=== PATIENT | female | born 1975 | race Caucasian/White ===

== ENCOUNTER 2023-01-04 16:58 | Emergency (ER) | payer OTHER, SELFPAY ==
[2023-01-04 17:06] VITALS: BP 125/80; PULSE 81; RESP 16; TEMP 37.1; O2SAT 97; BMI 33.1
--- NOTE | 2023-01-04 17:06 | ED_ITS ---
Documented by User: Mervat Escobar MD 01/04/23 19:15 HPI - General Adult General Chief complaint: Back Pain/Injury Stated complaint: LEG/BACK D/T FALL Time Seen by Provider: 01/04/23 17:06 Related Data Previous Rx's Medication Instructions Recorded hydrocodone 5 mg-acetaminophen 325 1 tab PO Q6H PRN pain #12 tabs 01/04/23 mg tablet ketorolac 10 mg tablet 10 mg PO TID PRN pain #10 tabs 01/04/23 methocarbamol 750 mg tablet 750 mg PO TID PRN pain #20 tabs 01/04/23 Allergies Allergy/AdvReac Type Severity Reaction Status Date / Time Penicillins AdvReac Severe Verified 01/04/23 17:06 mold AdvReac Severe Uncoded 01/04/23 17:13 PFSH [facility] Social History Smoking status: Former smoker Exam Constitutional Vital Signs, click to edit/add: Last Vital Signs Temp 98.8 F 01/04/23 17:06 Pulse 81 01/04/23 17:06 Resp 16 01/04/23 17:06 BP 125/80 01/04/23 17:06 Pulse Ox 97 01/04/23 17:06 O2 Del Method Room Air 01/04/23 17:06 Course Vital Signs Vital signs: Vital Signs Temperature 98.8 F 01/04/23 17:06 Pulse Rate 81 01/04/23 17:06 Respiratory Rate 16 01/04/23 17:06 Blood Pressure 125/80 01/04/23 17:06 Pulse Oximetry 97 01/04/23 17:06 Oxygen Delivery Method Room Air 01/04/23 17:06 Temperature 98.8 F 01/04/23 17:06 Pulse Rate 81 01/04/23 17:06 Respiratory Rate 16 01/04/23 17:06 Blood Pressure 125/80 01/04/23 17:06 Pulse Oximetry 97 01/04/23 17:06 Oxygen Delivery Method Room Air 01/04/23 17:06 Medical Decision Making MDM Narrative Medical decision making narrative: CT of the lumbar spine, x-rays of the pelvis and x-rays of the right femur are unremarkable. Patient's exam is consistent with right-sided sciatica. She will be discharged home with a short course of analgesics, muscle relaxants and NSAIDs. Follow-up with PCP. Continue ice to areas of injury and return to the emergency department if symptoms change or worsen. Attending physician attestation I have reviewed the mid-level documentation, agree with the documentation, medical decision making and treatment plan as outlined by the mid-level provider. Discharge Plan Discharge Chief Complaint: Back Pain/Injury Clinical Impression: Low back pain, Sciatica Patient Disposition: Home, Self-Care Time of Disposition Decision: 18:43 Condition: Good Prescriptions / Home Meds: New hydrocodone-acetaminophen 5-325 mg tablet 1 tab PO Q6H PRN (Reason: pain) Qty: 12 0RF Rx Instructions: DX: M54.5 ketorolac 10 mg tablet 10 mg PO TID PRN (Reason: pain) Qty: 10 0RF methocarbamol 750 mg tablet 750 mg PO TID PRN (Reason: pain) Qty: 20 0RF Instructions: Sciatica (ED), Acute Low Back Pain (ED) Stand Alone Forms: Portal Instructions Referrals: Luigi Osei DO [Primary Care Provider] - 1 week Discharge Date/Time: 01/04/23 18:57 Documented by User: NACHO Sanchez 01/04/23 18:45 HPI - General Adult General Chief complaint: Back Pain/Injury Stated complaint: LEG/BACK D/T FALL Time Seen by Provider: 01/04/23 17:06 History of Present Illness HPI narrative: patient is a 47-year-old female who presents to the emergency department with complaint of pain in the low back radiating into the right hip and buttock and down the back of the right leg. She states two nights ago she slipped on dog urine and her home did the splits . She states her right leg went forward. Since the injury she has been having pain radiate from the right low back into the back of the right leg. She reports tingling to the toes of the right foot. She reports worsening pain with movement and sitting. She has not had any urinary symptoms or incontinence. She does not take any blood thinners. She denies any head injury, neck or upper back pain. Related Data Previous Rx's Medication Instructions Recorded hydrocodone 5 mg-acetaminophen 325 1 tab PO Q6H PRN pain #12 tabs 01/04/23 mg tablet ketorolac 10 mg tablet 10 mg PO TID PRN pain #10 tabs 01/04/23 methocarbamol 750 mg tablet 750 mg PO TID PRN pain #20 tabs 01/04/23 Allergies Allergy/AdvReac Type Severity Reaction Status Date / Time Penicillins AdvReac Severe Verified 01/04/23 17:06 mold AdvReac Severe Uncoded 01/04/23 17:13 Review of Systems ROS Constitutional Denies: fever or chills Ears, nose, mouth, and throat Denies: throat pain Cardiovascular Denies: chest pain Respiratory Denies: shortness of breath or cough Gastrointestinal Denies: abdominal pain, nausea or vomiting Musculoskeletal Reports: back pain and extremity pain; Denies: neck pain Integumentary/Breast Denies: rash Neurological Denies: headache Hematologic/Lymphatic Denies: easy bruising PFSH [facility] Social History Smoking status: Former smoker Exam Narrative Exam Narrative: Gen.: Awake, alert, in no distress Head: Normocephalic, atraumatic ENT: Moist mucous membranes Respiratory: No respiratory distress Extremities: diffuse tenderness of the lumbar spine with no bony point tend erness to palpation, diffuse tenderness of the right posterior hip and buttock as well as the right posterior thigh. Small area of ecchymosis noted to the right knee with no bony point tenderness or edema. No bony tenderness of the right ankle. Normal flexion and extension at the right ankle with normal dorsiflexion and plantarflexion. No decrease in sensation to the medial thighs Psych: Normal mood and affect Neuro: No focal neuro deficit Skin: Warm, dry, intact Constitutional Vital Signs, click to edit/add: Last Vital Signs Temp 98.8 F 01/04/23 17:06 Pulse 81 01/04/23 17:06 Resp 16 01/04/23 17:06 BP 125/80 01/04/23 17:06 Pulse Ox 97 01/04/23 17:06 O2 Del Method Room Air 01/04/23 17:06 Course Vital Signs Vital signs: Vital Signs Temperature 98.8 F 01/04/23 17:06 Pulse Rate 81 01/04/23 17:06 Respiratory Rate 16 01/04/23 17:06 Blood Pressure 125/80 01/04/23 17:06 Pulse Oximetry 97 01/04/23 17:06 Oxygen Delivery Method Room Air 01/04/23 17:06 Temperature 98.8 F 01/04/23 17:06 Pulse Rate 81 01/04/23 17:06 Respiratory Rate 16 01/04/23 17:06 Blood Pressure 125/80 01/04/23 17:06 Pulse Oximetry 97 01/04/23 17:06 Oxygen Delivery Method Room Air 01/04/23 17:06 Medical Decision Making MDM Narrative Medical decision making narrative: CT of the lumbar spine, x-rays of the pelvis and x-rays of the right femur are unremarkable. Patient's exam is consistent with right-sided sciatica. She will be discharged home with a short course of analgesics, muscle relaxants and NSAIDs. Follow-up with PCP. Continue ice to areas of injury and return to the emergency department if symptoms change or worsen. Medical Records Medical records reviewed: Yes I reviewed the patient's medical records Discharge Plan Discharge Chief Complaint: Back Pain/Injury Clinical Impression: Low back pain, Sciatica Patient Disposition: Home, Self-Care Time of Disposition Decision: 18:43 Condition: Good Prescriptions / Home Meds: New hydrocodone-acetaminophen 5-325 mg tablet 1 tab PO Q6H PRN (Reason: pain) Qty: 12 0RF Rx Instructions: DX: M54.5 ketorolac 10 mg tablet 10 mg PO TID PRN (Reason: pain) Qty: 10 0RF methocarbamol 750 mg tablet 750 mg PO TID PRN (Reason: pain) Qty: 20 0RF Instructions: Sciatica (ED), Acute Low Back Pain (ED) Stand Alone Forms: Portal Instructions Referrals: Luigi Osei DO [Primary Care Provider] - 1 week Discharge Date/Time: 01/04/23 18:57
[2023-01-04] MEDS: KETOROLAC TROMETHAMINE 60 MG/2 ML VIAL IM (17:26)
[2023-01-04] MEDS: ORPHENADRINE 60 MG/ 2 ML VIAL IM (17:27)
--- NOTE | 2023-01-04 18:01 | CT_ITS ---
The [address] [address] Patient Name: AILEEN RODRIGUEZ MRN: [id number] date: 1975 Sex: F Assigned Patient Location: ED.MAIN Current Patient Location: ER Accession/Order Number: [id number] Exam Date: 01/04/2023 17:57 Report Date: 01/04/2023 18:39 At the request of: MARIAN BERMEO Procedure: CT lumbar spine wo con EXAM: CT lumbar spine wo con HISTORY: Fall COMPARISON: None. TECHNIQUE: Axial CT imaging is performed. Sagittal and coronal reformatted/reconstructed sequences were additionally performed. FINDINGS: IMPRESSION: Maintenance of the normal lumbar lordosis. Vertebral body heights are unremarkable. Degenerative anterolisthesis of the L4 vertebral body on L5 of approximately 3.7 mm secondary to severe bilateral facet arthrosis. Secondary to the anterolisthesis is uncovering of the dorsal aspect of the L4/L5 with disc with central canal and subarticular recess narrowing. Mild intervertebral disc space narrowing at L3-L4 with a very minimal retrolisthesis of the L3 vertebral body. The remainder of the facet joints and disc levels are unremarkable. No prevertebral soft tissue edema. The visualized sacroiliac joints are normal. No visualized soft tissue edema. No muscle hematoma, fatty infiltration or atrophy. Electronically authenticated by: CASIE AMAYA Date: 01/04/2023 18:39
--- NOTE | 2023-01-04 18:08 | XR_ITS ---
[address] [address] Patient Name: AILEEN RODRIGUEZ MRN: [id number] date: 1975 Sex: F Assigned Patient Location: ER Current Patient Location: ED.MAIN Accession/Order Number: [id number] Exam Date: 01/04/2023 18:00 Report Date: 01/04/2023 18:35 At the request of: MARIAN BERMEO Procedure: XR femur RT 2V EXAM: XR femur RT 2V HISTORY: Fall COMPARISON: None. TECHNIQUE: 4 views FINDINGS: No osseous lesion, fracture, dislocation or subluxation. Joint spaces are unremarkable. No visualized effusion. No visualized soft tissue edema. XR/XR femur RT 2V IMPRESSION: Normal x-rays Electronically authenticated by: CASIE AMAYA Date: 01/04/2023 18:35
--- NOTE | 2023-01-04 18:08 | XR_ITS ---
The [address] [address] Patient Name: AILEEN RODRIGUEZ MRN: [id number] date: 1975 Sex: F Assigned Patient Location: ER Current Patient Location: ED.MAIN Accession/Order Number: [id number] Exam Date: 01/04/2023 18:00 Report Date: 01/04/2023 18:34 At the request of: MARIAN BERMEO Procedure: XR pelvis 1-2V EXAM: XR pelvis 1-2V HISTORY: Fall COMPARISON: None. TECHNIQUE: AP pelvis FINDINGS: No fracture, dislocation, subluxation or osseous lesion. Joint spaces are unremarkable for patient's age. XR/XR pelvis 1-2V IMPRESSION: No visualized abnormality Electronically authenticated by: CASIE AMAYA Date: 01/04/2023 18:34
== END 2023-01-04 18:57 | disposition home or self-care (01) ==
PROVIDERS: Emergency Provider Emergency Medicine; PCP Family Medicine
DX: M54.41 Lumbago with sciatica, right side (principal); Z87.891 Personal history of nicotine dependence
CPT/HCPCS: 72131; 72170; 73552; 96372; 99285

== ENCOUNTER 2023-01-08 17:27 | Emergency (ER) | payer OTHER, SELFPAY ==
[2023-01-08 17:29] VITALS: BP 160/86; PULSE 75; RESP 18; TEMP 36.8; O2SAT 99; BMI 33.1
--- NOTE | 2023-01-08 17:46 | PC.NURSE ---
pt presents to ED because pt states that she slipped in dog pee on 01/01 and fell into the splits. pt states she came into this ER on 01/04 and had imagine done and was told that she probably had nerve damage and that there was something wrong with the discs in her spine. pt states she was sent home with norco, toradol, and a muscle relaxer. pt states that she has only taken one dose of the muscle relaxer and has been hesitant about taking the norco and toradol because she doesn't like taking new medications. pt states that she went to [facility] on sunday because she was concerned for a blood clot because the back of patients right thigh and knee were bruised. pt states they did not do an ultrasound but she was told she had a pulled hamstring and that is normal for there to be bruising. pt was sent home with any new medications at that time. pt states that this morning she woke up and right thigh was swollen and she is having cramping and more pain to righht leg.
--- NOTE | 2023-01-08 17:49 | US_ITS ---
The [address] [address] Patient Name: AILEEN RODRIGUEZ MRN: [id number] date: 1975 Sex: F Assigned Patient Location: ER Current Patient Location: ER Accession/Order Number: [id number] Exam Date: 01/08/2023 17:50 Report Date: 01/08/2023 18:27 At the request of: JOE MERCADO Procedure: US venous doppler LE RT EXAM: US venous doppler LE RT HISTORY: injury COMPARISON: None. TECHNIQUE: Standard right lower extremity Doppler interrogation performed. FINDINGS: No evidence of right lower extremity DVT. Mild soft tissue swelling. Normal waveforms detected US/US venous doppler LE RT IMPRESSION: No evidence of right lower extremity DVT. Electronically authenticated by: MARYELLEN VASQUEZ Date: 01/08/2023 18:27
--- NOTE | 2023-01-08 18:38 | ED_ITS ---
HPI - General Adult General Chief complaint: Fall Stated complaint: Fall Time Seen by Provider: 01/08/23 17:35 Source: patient Mode of arrival: walk-in Limitations: no limitations History of Present Illness HPI narrative: Patient is a 47-year-old female who is presenting to the Emergency Room with chief complaint of right leg ecchymosis, swelling. Patient had a injury last Sunday patient slipped on dog PEE. Patient was diagnosed with right lower back pain, sciatica, and patient was discharged with oral, Amasa, and Robaxin. Patient's pain wasn't improving, Patient was working near [facility] on Sunday, she went to [facility] a few days ago was seen and evaluated, and was told that she might have pulled her hamstring. Patient has taken today her Toradol and Robaxin. Sunday she noticed the ecchymosis to the right inner thigh. Patient noticed her slightly more swelling to the right inner thigh and around her right knee today, so she came back to the Emergency Room for evaluation again. 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 Patient's had no new fall, no new trauma, no new injury since last Sunday. . All systems are negative except as noted/marked. All systems reviewed and otherwise negative. . Nurses note and vital signs reviewed and patient is not hypoxic. General: The patient appears well and in no apparent distress. Patient is resting comfortably on cart. Patient is not toxic, lethargic, or listless Skin: Warm, dry, no pallor noted. There is no rash noted. No petechiae, purpura. Head: Normocephalic, atraumatic Eye: Normal conjunctiva, no drainage, EOMI. PERRL Ears, Nose, Mouth, and Throat: oral mucosa is moist. Nares patent. Mouth without vesicles. Cardiovascular: Regular Rate and Rhythm, no murmur, gallop, rub Respiratory: Patient is in no distress, no accessory muscle use, lungs are clear to auscultation, no wheezing, rales or rhonchi Back: non-tender, no CVA tenderness bilaterally to percussion. No CT LS midline pain GI: soft, no tenderness Musculoskeletal: Patient has full range of motion of all of the extremities, no motor, sensory, or focal neurological deficits. Patient has a large area from her right inner thigh to the right posterior thigh a superficial ecchymosis. Patient has no palpable hematomas. Patient still has Mild to moderate pain to the right lower paralumbar area from L3-L5, positive moderate tenderness to palpation to right piriformis muscle. Positive straight leg raising on the right, negative on left. Patient does have mild to moderate tendernesss to pal pation to right posterior thigh, no pain to right popliteal fossa or right calf. Patient has no pain to the entire left posterior leg. Neurological: A&O x3, normal speech Psychiatric: Cooperative Related Data Previous Rx's Medication Instructions Recorded hydrocodone 5 mg-acetaminophen 325 1 tab PO Q6H PRN pain #12 tabs 01/04/23 mg tablet ketorolac 10 mg tablet 10 mg PO TID PRN pain #10 tabs 01/04/23 methocarbamol 750 mg tablet 750 mg PO TID PRN pain #20 tabs 01/04/23 Allergies Allergy/AdvReac Type Severity Reaction Status Date / Time Penicillins AdvReac Severe Verified 01/04/23 17:06 mold AdvReac Severe Uncoded 01/04/23 17:13 [facility] Social History Smoking status: Former smoker Exam Constitutional Vital Signs, click to edit/add: Last Vital Signs Temp 98.3 F 01/08/23 17:29 Pulse 75 01/08/23 17:29 Resp 18 01/08/23 17:29 BP 160/86 H 01/08/23 17:29 Pulse Ox 99 01/08/23 17:29 Course Vital Signs Vital signs: Vital Signs Temperature 98.3 F 01/08/23 17:29 Pulse Rate 75 01/08/23 17:29 Respiratory Rate 18 01/08/23 17:29 Blood Pressure 160/86 H 01/08/23 17:29 Pulse Oximetry 99 01/08/23 17:29 Temperature 98.3 F 01/08/23 17:29 Pulse Rate 75 01/08/23 17:29 Respiratory Rate 18 01/08/23 17:29 Blood Pressure 160/86 H 01/08/23 17:29 Pulse Oximetry 99 01/08/23 17:29 Medical Decision Making MDM Narrative Medical decision making narrative: Patient's ultrasound to the right lower leg shows no deep vein thrombosis. This is a preliminary report. Patient continue using ice, stretching, call her PCP Dr. Gilman tomorrow follow-up with physical therapy and chiropractor if needed to help with sciatica. Patient understands this. No questions at discharge. Patient has no signs of saddle anesthesia or cauda equina. Patient has only taken a few of her tablets of prescriptions were given to her last Sunday to help with her pain. She was afraid to take her medication for unknown reasons. Discharge Plan Discharge Chief Complaint: Fall Clinical Impression: Low back pain, Superficial bruising of lower leg Patient Disposition: Home, Self-Care Condition: Good Prescriptions / Home Meds: No Action hydrocodone-acetaminophen 5-325 mg tablet 1 tab PO Q6H PRN (Reason: pain) Qty: 12 0RF Rx Instructions: DX: M54.5 ketorolac 10 mg tablet 10 mg PO TID PRN (Reason: pain) Qty: 10 0RF methocarbamol 750 mg tablet 750 mg PO TID PRN (Reason: pain) Qty: 20 0RF Instructions: Sciatica (ED), Contusion in Adults (ED), Lumbar Radiculopathy (ED), Back Pain (ED), Lower Back Exercises (ED) Additional Instructions: Continue to ice 20 minutes on, 20 minutes off, Do not use heat. Continue stretching. Follow-up with PCP and formal physical therapy as needed. Continue to elevate. Stand Alone Forms: Portal Instructions Referrals: Luigi Osei DO [Primary Care Provider] - 1 week Discharge Date/Time: 01/08/23 18:44
== END 2023-01-08 18:44 | disposition home or self-care (01) ==
PROVIDERS: Emergency Provider Emergency Medicine; PCP Family Medicine
DX: S80.11XA Contusion of right lower leg, initial encounter (principal); M54.50 Low back pain, unspecified; W01.0XXA Fall on same level from slipping, tripping and stumbling without subsequent striking against object, initial encounter; Z87.891 Personal history of nicotine dependence
CPT/HCPCS: 93971; 99284

== ENCOUNTER 2023-02-01 20:24 | Observation (INO) | payer OTHER, SELFPAY ==
[2023-02-01 20:27] VITALS: BP 120/84; PULSE 101; RESP 16; TEMP 38.1; O2SAT 98; BMI 34.0
[2023-02-01 20:32] VITALS: BP 120/84
--- NOTE | 2023-02-01 20:36 | ED.ABDPAIN1 ---
Documented by User: Billie Varma 02/01/23 22:09 HPI - Abdominal Pain General Chief Complaint: Abdominal Pain Stated Complaint: UTI Time Seen by Provider: 02/01/23 20:33 Source: patient Mode of arrival: walk-in History of Present Illness HPI narrative: 47 year old female presents to the ED for abd pain, nausea. Onset was within the past 1-2 days. Reports bloating, distention to her upper abdomen. She has pain to her right side. She presented febrile. Denies CP, SOB, diarrhea. Reports constipation. Denies dysuria, hematuria. Rates her pain 9/10 at this time. She has hx kidney stones. Reports previous abd hernia repair at the age of 13. She has hx DM. Related Data Previous Rx's Medication Instructions Recorded hydrocodone 5 mg-acetaminophen 325 1 tab PO Q6H PRN pain #12 tabs 01/04/23 mg tablet ketorolac 10 mg tablet 10 mg PO TID PRN pain #10 tabs 01/04/23 methocarbamol 750 mg tablet 750 mg PO TID PRN pain #20 tabs 01/04/23 Allergies Allergy/AdvReac Type Severity Reaction Status Date / Time Penicillins AdvReac Severe Verified 01/04/23 17:06 mold AdvReac Severe Uncoded 01/04/23 17:13 Review of Systems ROS Constitutional Reports: fever and chills; Denies: fatigue Ears, nose, mouth, and throat Denies: throat pain Cardiovascular Denies: chest pain Respiratory Denies: shortness of breath or cough Gastrointestinal Reports: abdominal pain, nausea and constipation; Denies: vomiting or diarrhea Genitourinary Denies: painful urination, urinary frequency, urinary urgency or blood in urine Musculoskeletal Reports: back pain Integumentary/Breast Denies: rash Neurological Denies: headache PFSH PFSH Social History Smoking status: Never smoker Exam Constitutional Vital Signs, click to edit/add: Last Vital Signs Temp 100.6 F H 02/01/23 20:27 Pulse 101 H 02/01/23 20:27 Resp 16 02/01/23 20:27 BP 120/84 02/01/23 20:27 Pulse Ox 98 02/01/23 20:27 O2 Del Method Room Air 02/01/23 20:27 Common normals: oriented x3 General appearance: cooperative; not comfortable Eye Common normals: conjunctivae normal and no scleral icterus Neck & C-Spine Common normals: supple Chest Chest: symmetrical chest wall rise Respiratory Common normals: normal respiratory effort Effort & inspection: able to speak in complete sentences and symmetric chest movement Cardio Rate: tachycardic Rhythm: regular rhythm GI Inspection: normal to inspection Auscultation: normoactive bowel sounds Palpation: soft and tender Details: epigastric, RLQ and RUQ; no guarding and not rigid Neuro Common normals: oriented x3 Sensorium/orientation: awake and alert Course Vital Signs Vital signs: Vital Signs Temperature 100.6 F H 02/01/23 20:27 Pulse Rate 101 H 02/01/23 20:27 Respiratory Rate 16 02/01/23 20:27 Blood Pressure 120/84 02/01/23 20:27 Pulse Oximetry 98 02/01/23 20:27 Oxygen Delivery Method Room Air 02/01/23 20:27 Temperature 100.6 F H 02/01/23 20:27 Pulse Rate 101 H 02/01/23 20:27 Respiratory Rate 16 02/01/23 20:27 Blood Pressure 120/84 02/01/23 20:27 Pulse Oximetry 98 02/01/23 20:27 Oxygen Delivery Method Room Air 02/01/23 20:27 MDM - Abdominal Pain MDM Narrative Medical decision making narrative: Testing was pending. Care was resumed to Dr. Owusu. See his dictation for further evaluation and treatment. Differential Diagnosis Differential diagnosis: Likely abdominal pain, acute appendicitis, constipation, diverticulitis, pancreatitis and small bowel obstruction Lab Data Labs: Lab Results 02/01/23 02/01/23 Range/Units 20:20 20:45 WBC 15.8 H (4.0-11.0) 10^3/uL RBC 4.68 (4.20-5.40) 10^6/uL Hgb 13.9 (12.0-16.0) g/dL Hct 42.5 (36.0-48.0) % MCV 90.8 (81.0-99.0) fL MCH 29.7 (26.7-34.0) pg MCHC 32.7 (29.9-35.2) g/dL RDW 13.7 (11.0-15.0) % Plt Count 223 (150-450) 10^3/uL MPV 11.3 (9.5-13.5) fL Neut % (Auto) 86.2 H (43.0-75.0) % Lymph % (Auto) 5.8 L (20.5-60.0) % [place] % (Auto) 6.6 (1.7-12.0) % Eos % (Auto) 0.6 L (0.9-7.0) % Baso % (Auto) 0.3 (0.2-2.0) % Neut # (Auto) 13.6 H (1.4-6.5) 10^3/uL Lymph # (Auto) 0.9 L (1.2-3.8) 10^3/uL [place] # (Auto) 1.0 H (0.3-0.8) 10^3/uL Eos # (Auto) 0.1 (0.0-0.7) 10^3/uL Baso # (Auto) 0.0 (0.0-0.1) 10^3/uL Abs Immat Gran (auto) 0.08 H (0.00-0.03) 10^3/uL Imm/Tot Granulo (auto) 0.5 (0.0-0.5) % Sodium 131 L (136-145) mmol/L Potassium 3.9 (3.5-5.1) mmol/L Chloride 98 (98-107) mmol/L Carbon Dioxide 27.9 (21.0-32.0) mmol/L Anion Gap 9.0 BUN 8.0 (7.0-18.0) mg/dL Creatinine 0.80 (0.55-1.02) mg/dL Est GFR ( Amer) >60 (>=60) Est GFR (Non-Af Amer) >60 (>=60) BUN/Creatinine Ratio 10.0 Glucose 331 H (74-106) mg/dL Calcium 9.1 (8.5-10.1) mg/dL Total Bilirubin 0.9 (0.2-1.0) mg/dL AST 13 L (15-37) U/L ALT 32 (14-59) U/L Alkaline Phosphatase 96 (46-116) U/L Total Protein 8.3 H (6.4-8.2) g/dL Albumin 4.1 (3.4-5.0) g/dL Globulin 4.2 g/dL Albumin/Globulin Ratio 1.0 Lipase 29.0 (16.0-77.0) U/L Urine Color Lt. yellow (YELLOW) Urine Clarity Clear (CLEAR) Urine pH 6.5 (5.0-9.0) Ur Specific [place] 1.020 (1.005-1.025) Urine Protein Negative (NEG/TRACE) mg/dL Urine Glucose (UA) >=1000 A (NEGATIVE) mg/dL Urine Ketones Negative (NEGATIVE) mg/dL Urine Occult Blood Negative (NEGATIVE) Urine Nitrite Negative (NEGATIVE) Urine Bilirubin Negative (NEGATIVE) Urine Urobilinogen 0.2 (0.2-1.0) EU/dL Ur Leukocyte Esterase Negative (NEGATIVE) Discharge Plan Discharge Chief Complaint: Abdominal Pain Clinical Impression: Abdominal pain, Acute appendicitis Patient Disposition: Admitted as Observation Prescriptions / Home Meds: No Action hydrocodone-acetaminophen 5-325 mg tablet 1 tab PO Q6H PRN (Reason: pain) Qty: 12 0RF Rx Instructions: DX: M54.5 ketorolac 10 mg tablet 10 mg PO TID PRN (Reason: pain) Qty: 10 0RF methocarbamol 750 mg tablet 750 mg PO TID PRN (Reason: pain) Qty: 20 0RF Referrals: Physician,Non-Staff, [Primary Care Provider] - 1 week Documented by User: Roberto Carlos Owusu MD 02/01/23 23:33 HPI - Abdominal Pain General Chief Complaint: Abdominal Pain Stated Complaint: UTI Time Seen by Provider: 02/01/23 20:33 Related Data Previous Rx's Medication Instructions Recorded hydrocodone 5 mg-acetaminophen 325 1 tab PO Q6H PRN pain #12 tabs 01/04/23 mg tablet ketorolac 10 mg tablet 10 mg PO TID PRN pain #10 tabs 01/04/23 methocarbamol 750 mg tablet 750 mg PO TID PRN pain #20 tabs 01/04/23 Allergies Allergy/AdvReac Type Severity Reaction Status Date / Time Penicillins AdvReac Severe Verified 01/04/23 17:06 mold AdvReac Severe Uncoded 01/04/23 17:13 PFSH [facility] Social History Smoking status: Never smoker Exam Constitutional Vital Signs, click to edit/add: Last Vital Signs Temp 100.6 F H 02/01/23 20:27 Pulse 101 H 02/01/23 20:27 Resp 16 02/01/23 20:27 BP 120/84 02/01/23 20:27 Pulse Ox 98 02/01/23 20:27 O2 Del Method Room Air 02/01/23 20:27 Course Vital Signs Vital signs: Vital Signs Temperature 100.6 F H 02/01/23 20:27 Pulse Rate 101 H 02/01/23 20:27 Respiratory Rate 16 02/01/23 20:27 Blood Pressure 120/84 02/01/23 20:27 Pulse Oximetry 98 02/01/23 20:27 Oxygen Delivery Method Room Air 02/01/23 20:27 Temperature 100.6 F H 02/01/23 20:27 Pulse Rate 101 H 02/01/23 20:27 Respiratory Rate 16 02/01/23 20:27 Blood Pressure 120/84 02/01/23 20:27 Pulse Oximetry 98 02/01/23 20:27 Oxygen Delivery Method Room Air 02/01/23 20:27 MDM - Abdominal Pain MDM Narrative Medical decision making narrative: Testing was pending. Care was resumed to Dr. Owusu. See his dictation for further evaluation and treatment. care transferred at end of PA shift. CT returned with findings of acute appendicitis. Discussed with weatherization specialist surgeon Dr Loomis and patient accepted for admission Lab Data Labs: Lab Results 02/01/23 02/01/23 Range/Units 20:20 20:45 WBC 15.8 H (4.0-11.0) 10^3/uL RBC 4.68 (4.20-5.40) 10^6/uL Hgb 13.9 (12.0-16.0) g/dL Hct 42.5 (36.0-48.0) % MCV 90.8 (81.0-99.0) fL MCH 29.7 (26.7-34.0) pg MCHC 32.7 (29.9-35.2) g/dL RDW 13.7 (11.0-15.0) % Plt Count 223 (150-450) 10^3/uL MPV 11.3 (9.5-13.5) fL Neut % (Auto) 86.2 H (43.0-75.0) % Lymph % (Auto) 5.8 L (20.5-60.0) % [place] % (Auto) 6.6 (1.7-12.0) % Eos % (Auto) 0.6 L (0.9-7.0) % Baso % (Auto) 0.3 (0.2-2.0) % Neut # (Auto) 13.6 H (1.4-6.5) 10^3/uL Lymph # (Auto) 0.9 L (1.2-3.8) 10^3/uL [place] # (Auto) 1.0 H (0.3-0.8) 10^3/uL Eos # (Auto) 0.1 (0.0-0.7) 10^3/uL Baso # (Auto) 0.0 (0.0-0.1) 10^3/uL Abs Immat Gran (auto) 0.08 H (0.00-0.03) 10^3/uL Imm/Tot Granulo (auto) 0.5 (0.0-0.5) % Sodium 131 L (136-145) mmol/L Potassium 3.9 (3.5-5.1) mmol/L Chloride 98 (98-107) mmol/L Carbon Dioxide 27.9 (21.0-32.0) mmol/L Anion Gap 9.0 BUN 8.0 (7.0-18.0) mg/dL Creatinine 0.80 (0.55-1.02) mg/dL Est GFR ( Amer) >60 (>=60) Est GFR (Non-Af Amer) >60 (>=60) BUN/Creatinine Ratio 10.0 Glucose 331 H (74-106) mg/dL Calcium 9.1 (8.5-10.1) mg/dL Total Bilirubin 0.9 (0.2-1.0) mg/dL AST 13 L (15-37) U/L ALT 32 (14-59) U/L Alkaline Phosphatase 96 (46-116) U/L Total Protein 8.3 H (6.4-8.2) g/dL Albumin 4.1 (3.4-5.0) g/dL Globulin 4.2 g/dL Albumin/Globulin Ratio 1.0 Lipase 29.0 (16.0-77.0) U/L Urine Color Lt. yellow (YELLOW) Urine Clarity Clear (CLEAR) Urine pH 6.5 (5.0-9.0) Ur Specific [place] 1.020 (1.005-1.025) Urine Protein Negative (NEG/TRACE) mg/dL Urine Glucose (UA) >=1000 A (NEGATIVE) mg/dL Urine Ketones Negative (NEGATIVE) mg/dL Urine Occult Blood Negative (NEGATIVE) Urine Nitrite Negative (NEGATIVE) Urine Bilirubin Negative (NEGATIVE) Urine Urobilinogen 0.2 (0.2-1.0) EU/dL Ur Leukocyte Esterase Negative (NEGATIVE) Discharge Plan Discharge Chief Complaint: Abdominal Pain Clinical Impression: Abdominal pain, Acute appendicitis Patient Disposition: Admitted as Observation Prescriptions / Home Meds: No Action hydrocodone-acetaminophen 5-325 mg tablet 1 tab PO Q6H PRN (Reason: pain) Qty: 12 0RF Rx Instructions: DX: M54.5 ketorolac 10 mg tablet 10 mg PO TID PRN (Reason: pain) Qty: 10 0RF methocarbamol 750 mg tablet 750 mg PO TID PRN (Reason: pain) Qty: 20 0RF Referrals: Physician,Non-Staff, MD [Primary Care Provider] - 1 week
[2023-02-01 20:52] LABS: Basophils Percent Auto 0.3 % (0.2-2.0); Eosinophils Absolute Auto 0.1 10^3/uL (0.0-0.7); Eosinophils Percent Auto 0.6 % (0.9-7.0); Hematocrit 42.5 % (36.0-48.0); Hemoglobin 13.9 g/dL (12.0-16.0); Immature Granulocytes Abs Auto 0.08 10^3/uL (0.00-0.03); Immature Granulocytes Pct Auto 0.5 % (0.0-0.5); Lymphocytes Absolute Auto 0.9 10^3/uL (1.2-3.8); Lymphocytes Percent Auto 5.8 % (20.5-60.0); Mean Corpuscular HGB Conc 32.7 g/dL (29.9-35.2); Mean Corpuscular Hemoglobin 29.7 pg (26.7-34.0); Mean Corpuscular Volume 90.8 fL (81.0-99.0); Mean Platelet Volume 11.3 fL (9.5-13.5); Monocytes Percent Auto 6.6 % (1.7-12.0); Neutrophils Absolute Auto 13.6 10^3/uL (1.4-6.5); Neutrophils Percent Auto 86.2 % (43.0-75.0); Platelet Count 223 10^3/uL (150-450); Red Blood Count 4.68 10^6/uL (4.20-5.40); Red Cell Distribution Width 13.7 % (11.0-15.0); White Blood Count 15.8 10^3/uL (4.0-11.0)
[2023-02-01 20:53] LABS: Bilirubin Urine NEGATIVE (NEGATIVE); Blood Urine NEGATIVE (NEGATIVE); Clarity Urine CLEAR (CLEAR); Color Urine LT. YELLOW (YELLOW); Glucose Urine UA >=1000 mg/dL (NEGATIVE); Ketones Urine NEGATIVE (NEGATIVE); Leukocyte Esterase Urine NEGATIVE (NEGATIVE); Nitrite Urine NEGATIVE (NEGATIVE); Protein Urine NEGATIVE (NEG/TRACE); Urobilinogen Urine 0.2 EU/dL (0.2-1.0); pH Urine 6.5 (5.0-9.0)
[2023-02-01 20:54] LABS: Urine Microscopic Indicated NO
[2023-02-01] MEDS: PANTOPRAZOLE SODIUM 40 MG VIAL IV (20:56)
[2023-02-01] MEDS: FENTANYL CITRATE/PF 100 MCG/2 ML VIAL 25 MCG IV (20:56)
[2023-02-01] MEDS: ONDANSETRON PF 4 MG/2 ML VIAL IV (20:57)
[2023-02-01] MEDS: 0.9 % SODIUM CHLORIDE 1,000 ML 999 ML IV (20:57)
--- NOTE | 2023-02-01 21:02 | CT_ITS ---
The [address] [address] Patient Name: AILEEN RODRIGUEZ MRN: [id number] date: 1975 Sex: F Assigned Patient Location: ER Current Patient Location: Accession/Order Number: [id number] Exam Date: 02/01/2023 21:45 Report Date: 02/01/2023 22:24 At the request of: JARRED HILL Procedure: CT abdomen pelvis w con EXAM: CT abdomen pelvis w con TECHNIQUE: Axial CT images were obtained of the abdomen and pelvis with intravenous contrast. Sagittal and coronal reformatted images were also obtained. Dose reduction techniques were achieved by using automated exposure control and/or adjustment of mA and/or kV according to patient size and/or use of iterative reconstruction technique. HISTORY: pain COMPARISON: None. FINDINGS: Lower chest: Mild bilateral dependent atelectasis. Liver: The liver is homogeneous with normal contours and normal size. Gallbladder: The gallbladder is unremarkable. There is no intra or extrahepatic biliary dilatation. Pancreas: The pancreas is homogeneous without evidence for mass lesion or inflammation. Spleen: The spleen is unremarkable without evidence for mass lesion. Adrenal glands: The adrenal glands are unremarkable Kidneys and bladder: The kidneys are unremarkable with no evidence for mass lesion, hydronephrosis or inflammation. The ureters demonstrate normal caliber. The urinary bladder is unremarkable. GI Tract: Stomach is unremarkable. Visualized small bowel is unremarkable without evidence for obstruction or active inflammation. Appendix is thickened with surrounding inflammation consistent with acute appendicitis. No evidence for rupture or abscess.Moderate retained stool within the colon. Reproductive: Unremarkable Lymph nodes: No retroperitoneal or abdominal lymphadenopathy. Vascular: The aorta is not dilated. Peritoneum: No free intraperitoneal air or free fluid. Abdominal wall: Degenerative facet changes at L4-L5. CT/CT abdomen pelvis w con IMPRESSION: Findings of acute appendicitis. No evidence for rupture or abscess. Electronically authenticated by: WANG MADRIGAL Date: 02/01/2023 22:24
[2023-02-01 21:07] LABS: Alanine Aminotransferase 32 U/L (14-59); Albumin Level 4.1 g/dL (3.4-5.0); Alkaline Phosphatase 96 U/L (46-116); Aspartate Amino Transferase 13 U/L (15-37); Bilirubin Total 0.9 mg/dL (0.2-1.0); Calcium 9.1 mg/dL (8.5-10.1); Carbon Dioxide 27.9 mmol/L (21.0-32.0); Chloride 98 mmol/L (98-107); Estimated GFR (African America >60 (>=60); Estimated GFR (Non-African Ame >60 (>=60); Globulin 4.2 g/dL; Glucose 331 mg/dL (74-106); Potassium 3.9 mmol/L (3.5-5.1); Sodium 131 mmol/L (136-145); Total Protein 8.3 g/dL (6.4-8.2)
[2023-02-01] MEDS: MORPHINE SULFATE 4 MG/ML VIAL IV (23:13)
[2023-02-01] MEDS: CIPROFLOXACIN IN 5 % DEXTROSE 400 MG/200 ML PIGGYBACK 200 MG IV (23:15)
[2023-02-01] MEDS: METRONIDAZOLE/SODIUM CHLORIDE 500 MG/100 ML PREMIX 100 MG IV (23:15)
[2023-02-01 23:24] VITALS: PULSE 88; RESP 22
--- NOTE | 2023-02-01 23:25 | ECG_ITS ---
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
[2023-02-01 23:27] VITALS: BP 128/67; PULSE 88
--- NOTE | 2023-02-01 23:38 | P.HP_ITS ---
H&P: HPI History of Present Illness Chief complaint: UTI Narrative: Gillian Jensen is a 47-year-old female who presented to the Emergency Department with two day history of abdominal pain. Emergency Department physician called and stated that she had acute appendicitis on CT scan and was febrile with 100.4 temperature. She is also diabetic.Patient rates the pain as a nine out of ten. She has had nauseafor the last two days. She's been anorexic.She is on Ozempic and another medication for her diabetes.she denies any chest pains or shortness of breath. She also suffers from low back pain and is currently being worked up by her PCP, Dr. Ji Osei, in [place], [place].she slipped and fell on some dog urine and did the splits and had severe bruising of her right lower extremity several weeks ago. She is single and has twin sons and two other sons. She works in a [employer] near [facility]. Review of Systems ROS Status of ROS 10 or more systems reviewed and unremarkable except as noted in history and below PFSH PFSH Social History Smoking status: Never smoker Meds Home Medications and Allergies Home Medications Medication Instructions Recorded Confirmed Type hydrocodone 5 mg-acetaminophen 325 1 tab PO Q6H PRN pain #12 tabs 01/04/23 Rx mg tablet ketorolac 10 mg tablet 10 mg PO TID PRN pain #10 tabs 01/04/23 Rx methocarbamol 750 mg tablet 750 mg PO TID PRN pain #20 tabs 01/04/23 Rx Allergies Allergy/AdvReac Type Severity Reaction Status Date / Time Penicillins AdvReac Severe Verified 01/04/23 17:06 mold AdvReac Severe Uncoded 01/04/23 17:13 Exam Constitutional Vital Signs, click to edit/add: Last Vital Signs Temp 100.6 F H 02/01/23 20:27 Pulse 101 H 02/01/23 20:27 Resp 16 02/01/23 20:27 BP 120/84 02/01/23 20:27 Pulse Ox 98 02/01/23 20:27 O2 Del Method Room Air 02/01/23 20:27 Documenting provider has reviewed patient's vital signs: yes Common normals: oriented x3, alert and well nourished General appearance: cooperative and ill appearing Nutritional appearance: obese Results Labs Labs: Short CBC 02/01/23 Range/Units 20:20 WBC 15.8 H (4.0-11.0) 10^3/uL Hgb 13.9 (12.0-16.0) g/dL Hct 42.5 (36.0-48.0) % Plt Count 223 (150-450) 10^3/uL BMP 02/01/23 20:20 Sodium 131 L Potassium 3.9 Chloride 98 Carbon Dioxide 27.9 BUN 8.0 Creatinine 0.80 Glucose 331 H Calcium 9.1 Liver Function 02/01/23 Range/Units 20:20 Total Bilirubin 0.9 (0.2-1.0) mg/dL AST 13 L (15-37) U/L ALT 32 (14-59) U/L Alkaline Phosphatase 96 (46-116) U/L Albumin 4.1 (3.4-5.0) g/dL Urine 02/01/23 Range/Units 20:45 Urine Color Lt. yellow (YELLOW) Urine Clarity Clear (CLEAR) Urine pH 6.5 (5.0-9.0) Ur Specific [place] 1.020 (1.005-1.025) Urine Protein Negative (NEG/TRACE) mg/dL Urine Glucose (UA) >=1000 A (NEGATIVE) mg/dL Imaging CT scan - abdomen: Radiologist's impression: acute appendicitis Assessment and Plan Assessment and Plan (1) Acute appendicitis: (2) Sciatica: (3) Low back pain: (4) Superficial bruising of lower leg: Plan laparoscopic appendectomy with possible open appendectomy. Risks benefits and alternatives to surgery may include infection, bleeding, postoperative abscess weeks later, blood clots legs or lungs, pneumonia, heart attack, stroke, and/or . Patient understood and agreed to surgery. This is an emergency.
[2023-02-01 23:41] VITALS: BP 97/65; PULSE 69; RESP 18; TEMP 37.2; O2SAT 96; BMI 34.1
[2023-02-01 23:43] LABS: HCG Qualitative Urine* NEGATIVE (NEGATIVE)
--- NOTE | 2023-02-01 23:59 | PM.GSPRC ---
Date of procedure: 02/02/23 Indications for Procedure: acute appendicitis Pre-op diagnosis: acute perforated appendicitis Post-op diagnosis: same as pre-op Procedure: Lap appendectomy Anesthesia: JOSIANE Surgeon: Steve Loomis Procedure Summary: 47-year-old female was taken to the OR placed in the supine position and given a general anesthetic by the director of solutions architecture. Timeout was taken and preoperative antibiotics were given. Informed consent had been obtained from the patient preoperatively. The abdomen was prepped and draped usual sterile fashion. SCDs were placed on bilateral lower extremities. A subumbilical incision was made down to the anterior rectus fascia which was opened on the midline and traction sutures of 0 Vicryl were placed in the peritoneal cavity was entered by incising the fascia. The 12 mm port was placed into the abdominal cavity which was insufflated to 15 mm carbon dioxide pressure. Next a 12 mm port was placed in the right upper quadrant and one in the left lower quadrant both under direct visualization after making transverse incisions in those areas. The trochars were visualized while inserting them. Patient was placed in Trendelenburg position the left side down and the appendix was grasped with a Gisell clamp through the left lower quadrant port. A window was made in the mesoappendix with a curved dissector and then an Endo KHLOE stapler was placed across the base ofthe appendix at the cecum below a small perforation and fired with hemostasis being maintained. Next the LigaSure device was used to take down the mesoappendix and obtaining hemostasis. The appendix was then placed into an Endobag and brought out through the umbilical port after placing the camera in the right upper quadrant port.she had a little bit of contamination which was suctioned out and irrigated with 1 L of normal saline. A HEVER drain was placed in the left lower quadrant port into the right paracolic gutter and tied into place with 3-0 nylon suture. Right lower quadrant was examined for hemostasis which was maintained. All ports were then removed and incisions were closed with 4 Monocryl suture in running subicular fashion after closing the anterior rectus fascia 0 Vicryl suture in interrupted fashion. Sterile dressings were placed. Sponge needle and instrument counts were correct. Case was emergency and contaminated. Lead Network Architect: RAUL Gan Estimated blood loss (mL): 5 Specimens: appendix Complications: No Condition: stable Disposition: PACU
[2023-02-02] VITALS (14 sets, daily range): BP systolic 83–136; BP diastolic 45–78; PULSE 73–85; RESP 13–23; TEMP 36.4–37.7; O2SAT 89–96
[2023-02-02] MEDS: BUPIVACAINE HCL 0.5% PF 50 MG/10 ML VIAL 20 ML INJ (01:05)
[2023-02-02] MEDS: 0.9 % SODIUM CHLORIDE 1,000 ML 100 ML IV ×2 (03:49→16:14)
[2023-02-02 04:58] LABS: Basophils Percent Auto 0.2 % (0.2-2.0); Eosinophils Percent Auto 0.1 % (0.9-7.0); Hematocrit 36.5 % (36.0-48.0); Hemoglobin 11.5 g/dL (12.0-16.0); Immature Granulocytes Pct Auto 0.6 % (0.0-0.5); Lymphocytes Absolute Auto 0.7 10^3/uL (1.2-3.8); Lymphocytes Percent Auto 4.6 % (20.5-60.0); Mean Corpuscular HGB Conc 31.5 g/dL (29.9-35.2); Mean Corpuscular Hemoglobin 29.9 pg (26.7-34.0); Mean Corpuscular Volume 94.8 fL (81.0-99.0); Mean Platelet Volume 11.3 fL (9.5-13.5); Monocytes Absolute Auto 0.8 10^3/uL (0.3-0.8); Monocytes Percent Auto 5.1 % (1.7-12.0); Neutrophils Absolute Auto 14.3 10^3/uL (1.4-6.5); Neutrophils Percent Auto 89.4 % (43.0-75.0); Platelet Count 185 10^3/uL (150-450); Red Blood Count 3.85 10^6/uL (4.20-5.40); Red Cell Distribution Width 13.9 % (11.0-15.0)
[2023-02-02 05:09] LABS: Glucose 299 mg/dL (74-106)
[2023-02-02] MEDS: METRONIDAZOLE/SODIUM CHLORIDE 500 MG/100 ML PREMIX 100 MG IV ×4 (06:21→23:15)
[2023-02-02 08:24] LABS: Glucometer 270 mg/dL (74-106)
[2023-02-02] MEDS: INSULIN ASPART 300 UNIT/3 ML PEN SUBQ ×3 (08:29→20:13)
--- NOTE | 2023-02-02 09:52 | CM.NOTE ---
Rounding with Dr. Farah. Pt. sitting up in chair having discussion with Dr. Farah. Discussed events leading up to hospitalization. No anticipated discharge needs identified at this time.
--- NOTE | 2023-02-02 10:47 | P.IMCN_ITS ---
HPI - Internal Medicine CN Data of Consult Patient: new to practice Consult date: 02/02/23 Requesting Physician: Steve Loomis MD Primary Care Provider: Non-Staff Physician, Family Provider: DIMITRI AUSTIN Consult Narrative Reason for consult: Medical Management Narrative: 47 y o female with PMHx of TYPE 2 DM presented to ED last night with abdominal pain x 3 days. She reports feeling nauseous, subjective fever with chills and loss of appetite with her abdominal pain. Patient was evaluated in ED and her w/ indicated acute appendicitis for which she was taken to OR earlier today. Patient underwent laparoscopic appendectomy but she was found to have small a ppendiceal perforation and was admitted for post operative monitoring. She has one HEVER drain in place with serosanguineous discharge. Her pain is reasonably well controlled and she is clear liquid diet right now. Patient was also started on Cipo/flagyl by Surgery. Hospitalist team was consulted for medical management of her T2 DM. She is on Ozempic as outpatient. We will manage her blood glucose with sliding scale while she is in the hospital. Her BP is slighlty low and she is requiring 1 L O2 post operatively. But has no symptoms of resp distress and feels well with no orthostasis and dizziness. She is on IVF currently. cc:: CC: Steve Loomis MD Review of Systems ROS Status of ROS 10 or more systems reviewed and unremarkable except as noted in history and below PFSH PFS Medical History (Updated 02/02/23 @ 10:55 by Shaikh Gagan MD) Diabetes ?E11.9 - Type 2 diabetes mellitus without complications (ICD-10) DVT (deep venous thrombosis) ?I82.409 - Acute embolism and thrombosis of unspecified deep veins of unspecified lower extremity (ICD-10) Surgical History (Updated 02/02/23 @ 03:28 by Omi Wiley) H/O parathyroidectomy ?E89.2 - Postprocedural hypoparathyroidism (ICD-10) Family History Other Family history of diabetes mellitus Social History (Updated 02/02/23 @ 10:54 by Shaikh Gagan MD) Within the past year, how often did you have a drink containing alcohol: never Within the past year, how many standard drinks containing alcohol did you have on a typical day: 1 or 2 Within the past year, how often did you have six or more drinks on one occasion: never Total score: 0 Score interpretation: A score less than 3 is consistent with normal alcohol consumption. Smoking status: Never smoker Non-prescribed substance use: denies use Meds Home Medications and Allergies Home Medications Medication Instructions Recorded Confirmed Type levothyroxine 100 mcg tablet 100 mcg PO DAILY 02/02/23 02/02/23 History (Synthroid) semaglutide 2 mg/dose (8 mg/3 mL) 2 mg subcut .weekly 02/02/23 History subcutaneous pen injector (Ozempic) tizanidine 4 mg tablet (Zanaflex) 4 mg PO .qhs PRN muscle spasticity 02/02/23 02/02/23 History Allergies Allergy/AdvReac Type Severity Reaction Status Date / Time Penicillins AdvReac Severe Verified 01/04/23 17:06 glimepiride [From Amaryl] AdvReac Intermediate Diarrhea Verified 02/02/23 02:24 metformin AdvReac Intermediate Diarrhea Verified 02/02/23 02:24 cranberries Allergy Severe Anaphylaxis Uncoded 02/02/23 02:24 mold Allergy Severe Anaphylaxis Uncoded 02/02/23 02:24 Exam Constitutional Vital Signs, click to edit/add: Last Vital Signs Temp 97.5 F L 02/02/23 05:02 Pulse 78 02/02/23 05:02 Resp 18 02/02/23 05:02 BP 94/61 02/02/23 05:02 Pulse Ox 95 02/02/23 05:10 O2 Del Method Nasal Cannula 02/02/23 05:10 O2 Flow Rate 2 02/02/23 05:10 Documenting provider has reviewed patient's vital signs: yes Common normals: no apparent distress and oriented x3 General appearance: cooperative HENMT Common normals: normocephalic and head/scalp atraumatic Head and scalp: normocephalic and atraumatic Eye Common normals: conjunctivae normal and no scleral icterus Conjunctiva: conjunctiva(e) normal Respiratory Common normals: normal respiratory effort and clear to auscultation bilaterally Effort & inspection: able to speak in complete sentences Auscultation: clear to auscultation bilaterally Cardio Common normals: regular rate, S1 normal heart sound and S2 normal heart sound Rate: regular rate Heart sounds: S1 normal and S2 normal GI Common normals: soft to palpation and no hepatosplenomegaly Other: HEVER drain in place. Surgical tape over laparoscopic port incision sites. Extremity Common normals: no clubbing, cyanosis or edema Neuro Common normals: oriented x3, moves all extremities and no focal motor deficits Psych Common normals: mental status grossly normal, denies hallucinations, denies homicidal ideation and denies suicidal ideation Internal Medicine - CN: Reslt Labs Labs: Short CBC 02/01/23 02/02/23 Range/Units 20:20 04:37 WBC 15.8 H 16.0 H (4.0-11.0) 10^3/uL Hgb 13.9 11.5 L (12.0-16.0) g/dL Hct 42.5 36.5 (36.0-48.0) % Plt Count 223 185 (150-450) 10^3/uL BMP 02/01/23 02/02/23 20:20 04:37 Sodium 131 L Potassium 3.9 Chloride 98 Carbon Dioxide 27.9 BUN 8.0 Creatinine 0.80 Glucose 331 H 299 H Calcium 9.1 Liver Function 02/01/23 Range/Units 20:20 Total Bilirubin 0.9 (0.2-1.0) mg/dL AST 13 L (15-37) U/L ALT 32 (14-59) U/L Alkaline Phosphatase 96 (46-116) U/L Albumin 4.1 (3.4-5.0) g/dL Urine 02/01/23 Range/Units 20:45 Urine Color Lt. yellow (YELLOW) Urine Clarity Clear (CLEAR) Urine pH 6.5 (5.0-9.0) Ur Specific [place] 1.020 (1.005-1.025) Urine Protein Negative (NEG/TRACE) mg/dL Urine Glucose (UA) >=1000 A (NEGATIVE) mg/dL Assessment and Plan Assessment and Plan (1) Acute appendicitis: Assessment and Plan: s/p laparoscopic appendectomy. On IV Ciprofloxacin and Flagyl. Tolerating Clear Liquid diet. Pain is reasonably controlled Diet, pain controlled deferred to Surgery. Qualifiers: Acute appendicitis type: with localized peritonitis Appendicitis gangrene presence: without gangrene Appendicitis perforation presence: with perforation Appendicitis abscess presence: without abscess Qualified Code(s): K35.32 - Acute appendicitis with perforation, localized peritonitis, and gangrene, without abscess (2) Diabetes: Assessment and Plan: SSI while in patient. Goal FSBS 140-180 Monitor. (3) Postoperative hypoxia: Assessment and Plan: Ordered OPEP for patient. No resp symptoms. Wean off as tolerated.
[2023-02-02 10:58] LABS: Glucometer 298 mg/dL (74-106)
[2023-02-02] MEDS: LEVOTHYROXINE SODIUM 100 MCG TABLET PO (11:06)
[2023-02-02] MEDS: CIPROFLOXACIN IN 5 % DEXTROSE 400 MG/200 ML PIGGYBACK 200 MG IV ×2 (11:56→23:15)
[2023-02-02] MEDS: OXYCODONE HCL/ACETAMINOPHEN 5MG/325MG 1 TAB PO ×2 (14:23→20:14)
[2023-02-02 19:51] LABS: Glucometer 225 mg/dL (74-106)
[2023-02-02] MEDS: TIZANIDINE HCL 4 MG TABLET PO (20:14)
[2023-02-03] MEDS: OXYCODONE HCL/ACETAMINOPHEN 5MG/325MG 1 TAB PO ×2 (02:48→09:31)
[2023-02-03 03:49] VITALS: BP 101/65; PULSE 84; RESP 18; TEMP 37.2; O2SAT 91
[2023-02-03 03:55] VITALS: O2SAT 96
[2023-02-03] MEDS: LEVOTHYROXINE SODIUM 100 MCG TABLET PO (05:27)
[2023-02-03] MEDS: 0.9 % SODIUM CHLORIDE 1,000 ML 100 ML IV (05:27)
[2023-02-03] MEDS: METRONIDAZOLE/SODIUM CHLORIDE 500 MG/100 ML PREMIX 100 MG IV (05:28)
[2023-02-03 08:10] VITALS: O2SAT 94
[2023-02-03 09:04] LABS: Glucometer 234 mg/dL (74-106)
[2023-02-03] MEDS: INSULIN ASPART 300 UNIT/3 ML PEN SUBQ (09:31)
[2023-02-03] MEDS: POLYETHYLENE GLYCOL 3350 17 GM POWDER PACKET PO (09:31)
--- NOTE | 2023-02-03 10:46 | P.DS_ITS ---
DS: Providers Provider Date of admission: 02/02/23 00:14 Primary care physician: Non-Staff Physician, Consults: 02/02/23 00:54 Consult to Hospitalist Routine Consulting Provider: Shaikh Farah Reason for consultation: management of diabetes Has provider been notified: No DS: Diagnosis Discharge Diagnosis (1) Acute appendicitis: Qualifiers: Acute appendicitis type: with localized peritonitis Appendicitis abscess presence: without abscess Appendicitis gangrene presence: without gangrene Appendicitis perforation presence: with perforation Qualified Code(s): K35.32 - Acute appendicitis with perforation, localized peritonitis, and gangrene, without abscess (2) Diabetes: (3) Postoperative hypoxia: DS: Summary Hospital Course Hospital Course: [age] showed female presented to the Emergency Department with complaints of right lower quadrant pain and was found have acute appendicitis. She is taken to surgery and have a perforated appendicitis at the base the appendix. A drain was left in place for twenty-four hours. Prior to discharge she was tolerating a di et and ambulating and passing flatus. Her drain was putting out serosanguineous drainage therefore it was discontinued. She was discharged home with routine postop lap appendectomy instructions. Time spent discussing smoking cessation with patient: 3 to 10 minutes Status at Discharge Cognitive/behavioral status at discharge: alert and oriented to person place and time Functional status at discharge: independent ambulation Overall status at discharge: patient is progressing back to baseline Time Spent with Patient Time attestation: Total time spent providing and/or coordinating discharge services: Exam Constitutional Vital Signs, click to edit/add: Last Vital Signs Temp 98.9 F 02/03/23 03:49 Pulse 84 02/03/23 03:49 Resp 18 02/03/23 03:49 BP 101/65 02/03/23 03:49 Pulse Ox 94 L 02/03/23 08:10 O2 Del Method Room Air 02/03/23 08:10 O2 Flow Rate 2 02/03/23 03:55 GI Common normals: Normal to inspection, nondistended, normoactive bowel sounds present and soft to palpation Other: incisions clean dry and intact and draining serosanguineous drainage noted. DS: Data Data Completed and Pending Labs on day of discharge: Labs from last 24 hours 02/03/23 02/02/23 02/02/23 09:00 19:49 10:56 POC Glucose 234 H 225 H 298 H Discharge Plan Discharge Disposition: Home, Self-Care Condition: Good Assessment: back to baseline Plan of Treatment: in the follow-up with me in ten days for recheck. Stay off work until then. Discharge Medications: New oxycodone-acetaminophen 5-325 mg Tablet 1 tab PO Q6H PRN (Reason: Pain Scale 4-6) Qty: 7 0RF Continued Ozempic 2 mg/dose (8 mg/3 mL) pen injector 2 mg SUBCUT .weekly tizanidine [Zanaflex] 4 mg tablet 4 mg PO .qhs PRN (Reason: muscle spasticity) Rx Instructions: 1 to 2 tablets at bedtime as needed levothyroxine [Synthroid] 100 mcg tablet 100 mcg PO DAILY Activity: increase activity as tolerated and resume usual activities as tolerated Activity Detail: no lifting greater than 5 pounds Diet: diabetic diet Patient Instructions: Appendicitis (GEN) Activity Restrictions/Additional Instructions: no lifting greater than 5 pounds for one month. May walk as much is wanted and go up and down stairs. Shower only. Return to office in ten days for recheck. No driving for five days. Forms: Portal Instructions Referrals: Steve Loomis MD [Physician] - Physician,Non-Staff, [Primary Care Provider] - 1 week
--- NOTE | 2023-02-06 15:35 | CM.DCFOLLOWU ---
Person spoke with: patient How are you feeling? much better, continued taking miralax and feels much better How is your pain? no pain now Did you understand your discharge instructions? yes Do you have any questions about your discharge instructions? no Were you given any prescriptions at discharge? yes Were you able to get your prescriptions filled? yes Do you understand how to take your medications as ordered? yes Do you have any questions about your follow up appointment and do you plan to keep your follow up appointment? no questions, follow up on 02/14/23 Is there anything else that you would like to discuss? no Questions/Comments/Concerns/Other: Compliments and apprecation to yoan May on the floor
== END 2023-02-03 12:27 | disposition home or self-care (01) ==
LOC: ER 23:38 → SURGOUT 23:43 → MS 02-02 00:15
PROVIDERS: Nurse Practitioner Family; Admitting Provider Surgery; Emergency Provider Internal Medicine; Visit Provider Surgery
PROC: (CPT 00840; principal; 2023-02-01 23:40)
DX: K35.32 Acute appendicitis with perforation, localized peritonitis, and gangrene, without abscess (principal); E11.9 Type 2 diabetes mellitus without complications; R09.02 Hypoxemia; E66.9 Obesity, unspecified; E89.2 Postprocedural hypoparathyroidism; M54.40 Lumbago with sciatica, unspecified side; S80.11XA Contusion of right lower leg, initial encounter; Z68.34 Body mass index [BMI] 34.0-34.9, adult; W01.0XXA Fall on same level from slipping, tripping and stumbling without subsequent striking against object, initial encounter; Z87.442 Personal history of urinary calculi; Z79.890 Hormone replacement therapy; Z79.899 Other long term (current) drug therapy; Z86.718 Personal history of other venous thrombosis and embolism; Z87.891 Personal history of nicotine dependence
CPT/HCPCS: 00840; 44970; 36415; 36416; 74177; 80053; 81003; 82947; 82948; 83690; 84703; 85025; 88304; 93005; 94667; 94761; 96365; 96366; 96367; 96368; 96375; 96376; 99285; G0378; J2704; Q9967

== ENCOUNTER 2024-02-21 16:08 | Emergency (ER) | payer OTHER, SELFPAY ==
[2024-02-21 16:15] VITALS: BP 120/88; PULSE 65; TEMP 36.7; O2SAT 100; BMI 34.0
[2024-02-21 17:43] LABS: Bilirubin Urine NEGATIVE (NEGATIVE); Blood Urine NEGATIVE (NEGATIVE); Clarity Urine SL CLOUDY (CLEAR); Color Urine LT. YELLOW (YELLOW); Glucose Urine UA >=1000 mg/dL (NEGATIVE); Ketones Urine TRACE mg/dL (NEGATIVE); Leukocyte Esterase Urine NEGATIVE (NEGATIVE); Nitrite Urine POSITIVE (NEGATIVE); Protein Urine NEGATIVE (NEG/TRACE); Specific Gravity Urine 1.025 (1.005-1.025); Urobilinogen Urine 0.2 EU/dL (0.2-1.0)
[2024-02-21 17:50] LABS: HCG Qualitative Urine* NEGATIVE (NEGATIVE); Internal Control Within Normal Limits
[2024-02-21 17:52] LABS: Urine Microscopic Indicated YES
[2024-02-21 17:53] LABS: Bacteria Urine LARGE #/HPF (NONE SEEN); Cast Seen? NONE SEEN #/LPF (NONE SEEN); Crystals Seen? None Seen #/HPF (None Seen); Mucus Urine NONE SEEN (NONE SEEN); RBC Urine NONE SEEN #/HPF (0-2); Squamous Epithelial Cell Urine RARE #/LPF (NONE/RARE); Urine Culture Indicated YES
--- NOTE | 2024-02-21 18:05 | ED.FEMALEGU1 ---
HPI - Female Genitourinary General Chief complaint: Urogenital-Female Stated complaint: UTI Time Seen by Provider: 02/21/24 16:46 Source: patient Mode of arrival: walk-in Limitations: no limitations History of Present Illness HPI Narrative: Patient presented to us with frequency increase in the last few days in addition to burning with urination, and some suprapubic discomfort The patient denies any fever chills or any other complaints and she did mention also that she does not have any significant back pain she have a history of fibromyalgia and she does not think that she have a new back pain Related Data Home Medications ?Medication ?Instructions ?Recorded ?Confirmed levothyroxine 100 mcg tablet 100 mcg PO DAILY 02/02/23 02/21/24 (Synthroid) semaglutide 2 mg/dose (8 mg/3 mL) 2 mg subcut .weekly 02/02/23 02/21/24 subcutaneous pen injector (Ozempic) canagliflozin 300 mg tablet 300 mg PO DAILY 02/21/24 02/21/24 (Invokana) Previous Rx's ?Medication ?Instructions ?Recorded sulfamethoxazole 800 1 tab PO BID #10 tabs 02/21/24 mg-trimethoprim 160 mg tablet (Bactrim DS) Allergies Allergy/AdvReac Type Severity Reaction Status Date / Time Penicillins AdvReac Severe Verified 01/04/23 17:06 glimepiride (From Amaryl) AdvReac Intermediate Diarrhea Verified 02/02/23 02:24 metformin AdvReac Intermediate Diarrhea Verified 02/02/23 02:24 cranberries Allergy Severe Anaphylaxis Uncoded 02/02/23 02:24 mold Allergy Severe Anaphylaxis Uncoded 02/02/23 02:24 Review of Systems ROS Status of ROS 10 or more systems reviewed and unremarkable except as noted in history and below [facility] Medical History (Updated 02/21/24 @ 18:03 by Christa Medrano MD) Diabetes ?E11.9 - Type 2 diabetes mellitus without complications (ICD-10) DVT (deep venous thrombosis) ?I82.409 - Acute embolism and thrombosis of unspecified deep veins of unspecified lower extremity (ICD-10) Surgical History (Updated 02/02/23 @ 03:28 by Omi Wiley) H/O parathyroidectomy ?E89.2 - Postprocedural hypoparathyroidism (ICD-10) Family History Other Family history of diabetes mellitus Social History (Updated 02/02/23 @ 10:54 by Shaikh Gagan MD) Within the past year, how often did you have a drink containing alcohol: never Within the past year, how many standard drinks containing alcohol did you have on a typical day: 1 or 2 Within the past year, how often did you have six or more drinks on one occasion: never Total score: 0 Score interpretation: A score less than 3 is consistent with normal alcohol consumption. Smoking status: Never smoker Non-prescribed substance use: denies use Exam Narrative Exam Narrative: Nurses notes and vital signs reviewed and patient is not hypoxic. General: Well-appearing and in no apparent distress. Skin: Warm, dry, no pallor noted. No rash. Head: Normocephalic, atraumatic. Neck: Supple, non-tender. Eye: Pupils are equal, round and EOMI. No scleral icterus. Ears, Nose, Mouth, and Throat: TM are clear, no nasal mucosal hypertrophy. Oral mucosa is moist, no posterior oropharynx erythema, uvula is mid-line Cardiovascular: Regular Rate and Rhythm without murmur, gallop or rub. Respiratory: No accessory muscle use or respiratory distress. Lungs are clear to auscultation, no wheezing, rales or rhonchi Chest Wall: no tenderness Back: No midline thoracic or lumbar vertebral tenderness. No CVA tenderness Musculoskeletal: normal ROM, no calf or popliteal tenderness, no lower extremity edema/swelling GI: Abdomen is soft, non-distended. Normal bowel sounds. No masses appreciated. No tenderness to palpation. No rebound, guarding, or rigidity noted. Neurological: A&O x4. No cranial nerve dysfunction observed. No truncal ataxia. Moves all extremities. Sensation intact. Psychiatric: Cooperative and interactive. Normal mood and affect. Constitutional Vital Signs, click to edit/add: Last Vital Signs Temp 98.0 F 02/21/24 16:15 Pulse 65 02/21/24 16:15 Resp 18 02/21/24 16:15 BP 120/88 02/21/24 16:15 Pulse Ox 100 02/21/24 16:15 O2 Del Method Room Air 02/21/24 16:15 Course Vital Signs Vital signs: Vital Signs Temperature 98.0 F 02/21/24 16:15 Pulse Rate 65 02/21/24 16:15 Respiratory Rate 18 02/21/24 16:15 Blood Pressure 120/88 02/21/24 16:15 Pulse Oximetry 100 02/21/24 16:15 Oxygen Delivery Method Room Air 02/21/24 16:15 Temperature 98.0 F 02/21/24 16:15 Pulse Rate 65 02/21/24 16:15 Respiratory Rate 18 02/21/24 16:15 Blood Pressure 120/88 02/21/24 16:15 Pulse Oximetry 100 02/21/24 16:15 Oxygen Delivery Method Room Air 02/21/24 16:15 MDM - Female Genitourinary MDM Narrative Medical decision making narrative: The patient presented to us with urinary symptoms and frequency including burning with urination and her urine shows nitrite in addition to some white blood cells and abundant amount of bacteria Right now with the patient's symptoms she will be treated for UTI she was instructed about hydration and monitoring the symptoms The patient to come back to the ER in case any back pain or fever or any New Symptom Patient was discharged home with Bactrim instructed to hydrate and come back in case of any new symptoms The patient is to follow up with primary care physician in next 2-3 days or to return to the emergency department should any of the signs or symptoms worsen or new symptoms develop. The patient agrees with the following Diagnosis and Treatment plan and the patient will be discharged home. Lab Data Labs: Lab Results 02/21/24 Range/Units 16:25 Urine Color Lt. yellow (YELLOW) Urine Clarity Sl cloudy (CLEAR) Urine pH 6.0 (5.0-9.0) Ur Specific [place] 1.025 (1.005-1.025) Urine Protein Negative (NEG/TRACE) mg/dL Urine Glucose (UA) >=1000 A (NEGATIVE) mg/dL Urine Ketones Trace A (NEGATIVE) mg/dL Urine Occult Blood Negative (NEGATIVE) Urine Nitrite Positive A (NEGATIVE) Urine Bilirubin Negative (NEGATIVE) Urine Urobilinogen 0.2 (0.2-1.0) EU/dL Ur Leukocyte Esterase Negative (NEGATIVE) Urine RBC None seen (0-2) #/HPF Urine WBC 2-5 A (NONE SEEN) #/HPF Ur Squamous Epith Cells Rare (NONE/RARE) #/LPF Urine Crystals None seen (None Seen) #/HPF Urine Bacteria Large A (NONE SEEN) #/HPF Urine Casts None seen (NONE SEEN) #/LPF Urine Mucus None seen (NONE SEEN) Ur Culture Indicated? Yes Urine HCG, Qual Negative (NEGATIVE) Discharge Plan Discharge Chief Complaint: Urogenital-Female Clinical Impression: Urinary tract infection Patient Disposition: Home, Self-Care Time of Disposition Decision: 18:03 Condition: Good Prescriptions / Home Meds: New sulfamethoxazole-trimethoprim [Bactrim DS] 800-160 mg tablet 1 tab PO BID Qty: 10 0RF No Action Ozempic 2 mg/dose (8 mg/3 mL) pen injector 2 mg SUBCUT .weekly levothyroxine [Synthroid] 100 mcg tablet 100 mcg PO DAILY Invokana 300 mg tablet 300 mg PO DAILY Print Language: Luxembourgish Referrals: Luigi Osei DO [Primary Care Provider] - 1 week
[2024-02-21] MEDS: SULFAMETHOXAZOLE/TRIMETHOPRIM 800-160 MG TABLET 1 TAB PO (18:13)
[2024-02-21 18:19] VITALS: BP 173/94; PULSE 59; TEMP 36.6; O2SAT 99
== END 2024-02-21 18:24 | disposition home or self-care (01) ==
PROVIDERS: Emergency Provider Emergency Medicine; PCP Family Medicine
DX: N39.0 Urinary tract infection, site not specified (principal); M79.7 Fibromyalgia
CPT/HCPCS: 80053; 81001; 84703; 87086; 99283

== ENCOUNTER 2024-04-30 22:39 | Emergency (ER) | payer OTHER, SELFPAY ==
--- OUTSIDE RECORDS SUMMARY | 2024-04-30 22:44 | XMS_ITS | CCD ---
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 [employer] Maker Name Role Phone Luigi Austin Primary Care Provider [phone] Cornelio Mesa Attending Provider [phone] Noemi Eli Attending Provider Mary Ashraf Unavailable Luigi Austin Unavailable DO Luigi Austin Primary Care Provider MD Lui Cartwright Attending Provider LUIGI AUSTIN Primary Care Physician DO Luigi Austin Primary Care Provider MD Lui Cartwright Attending Provider MD Noemi Eli Attending Provider [phone] Clement Garnett Attending Unavailable Clement Garnett Admitting Unavailable Provider, Unlisted Primary Care Unavailable DO Luigi Austin Primary Care Provider [phone] DO Kamlesh Barragan Emergency Provider [phone] DO Luigi Austin Primary Care Provider [phone] DO Kamlesh Barragan Emergency Provider [phone] MD Noemi Eli Attending Provider Keagan Rahman Unavailable DO Luigi Austin Primary Care Provider [phone] DO Keagan Rahman Attending Provider [phone] KEVIN Myers Attending Provider Skylar Myers Unavailable Luigi Austin Primary Care Unavailable Alcira, Ahmad Admitting Unavailable Alcira, Ahmad Attending Unavailable Luigi Austin Primary Care Unavailable Keagan Rahman Admitting Unavailable Keagan Rahman N Attending Unavailable Luigi Austin Primary Care Unavailable Laurel, Kamlesh M Admitting Unavailable Kamlesh Barragan M Attending Unavailable Skylar Myers Admitting Unavailable Skylar Myers Attending Unavailable Luigi Austin Primary Care Unavailable Lui CARTWRIGHT Attending Unavailable DO Luigi Austin Primary Care Provider [phone] KEVIN Myers Attending Provider [phone] Nelia TUBE SKIVER, Debora Barkley Unavailable MANJEET FIGUEROA Attending Unavailable RAFY BALBUENA Attending Unavailable ALCIRA, CAROLINAMAD F Attending Unavailable ALCIRA AHMAD F Referring Unavailable Luigi Austin MD Primary Care Provider Unavailable Unavailable Unavailable Allergies Allergy Classification Reported Allergen(s) Allergy Type Date of Onset Reaction(s) Facility (8 sources) Cranberry preparation; Translations: [cranberry] Drug Allergy 02-26-20 19 Anaphylaxis [facility] (16 sources) Penicillins; Translations: [penicillins] Allergy to substance 06-04-18 83 Anaphylaxis, Dermatitis, GI intolerance, Rash, Shortness of breath, Swelling, Unknown [facility] (16 sources) Amoxicillin / Clavulanate Drug Allergy anaphylaxis [facility] [employer] Other (20 sources) metFORMIN Drug Allergy 04-12-20 23 stomach upset [facility] (16 sources) Penicillins (Antibiotic) Propensity to adverse reactions itching, SOB, inflammation [facility] [employer] Other (16 sources) Glimeperide Propensity to adverse reactions acne, edema [facility] [employer] Other (2 sources) cranberries 1 Food allergy Swelling of throat [facility] Comment on above: neck swelling, airwa y constriction (10 sources) Amoxicillin / Clavulanate Drug Allergy anaphylaxis [facility] [employer] Other (12 sources) glimepiride Drug Allergy 12-14-20 23 Unknown, Unknown Reaction [facility] (11 sources) Penicillin; Translations: [penicillin] Drug Allergy [facility] Repository (3 sources) Amoxicillin; Translations: [amoxicillin] Drug Allergy 04-12-20 anaphylaxis [facility] (8 sources) Clavulanate; Translations: [clavulanic acid] Drug Allergy 04-12-20 anaphylaxis [facility] (1 source) glimepiride Drug Allergy 04-12-20 [facility] Repository (1 source) metFORMIN Drug Allergy 04-12-20 [facility] Repository (1 source) Cranberry; Translations: [cranberries] Food allergy (disorder) [facility] Repository (5 sources) Cranberry Allergy to substance 03-25-19 Anaphylaxis, Cough, Dermatitis, Rash, Shortness of breath, Swelling, Wheezing [facility] (5 sources) glimepiride Drug Allergy 08-28-19 [facility] Medications Current Medications Medication Drug Class(es) Dates Sig (Normalized) Sig (Original) azithromycin 500 mg oral tablet (4 sources) Macrolide Antimicrobial Start: 08-28-2023 take 500 mg by mouth once daily Azithromycin Active 500 MG PO daily 5 August 28, 2023 12:00am Start: 05-09-2021 Azithromycin 2 50 MG 2 tablet on the first day, then 1 tablet daily for 4 days Orally Once a day for 5 day(s) Apr, Active biotin 0.3 mg oral tablet (7 sources) Start: 02-15-2021 take 1 ug by mouth once daily biotin 300 mcg oral tablet mcg tab(s), Oral, Daily, Refills(s) 0 Start Date: 02/15/21 Status: Ordered biotin 3 MG tabl et Take by mouth Active canagliflozin 300 mg oral tablet (20 sources) Sodium-Glucose Cotransporter 2 Inhibitor Start: 06-01-2014 End: 03-05-2024 take 1 tablet by mouth once daily Canagliflozin (Invokana) 300 mg Tablet Active 300 MG PO Daily February 25, 2019 12:00am cholecalciferol 0.025 mg oral tablet (5 sources) Vitamin D take 1 tablet by mouth once daily cholecalciferol (Vitamin D-3) 25 MCG (1000 UT) tablet Take 1,000 Units by mouth Daily Active diclofenac sodium 75 mg delayed release oral tablet (2 sources) Nonsteroidal Anti-inflammatory Drug Start: 04-12-2023 take 1 tablet by mouth every twelve hours Diclofenac Sodium 75 MG 1 tablet as needed Orally Twice a day for 30 days Mar, Active empagliflozin 25 mg oral tablet (3 sources) Sodium-Glucose Cotransporter 2 Inhibitor Start: 03-05-2024 End: 07-03-2024 take 1 tablet by mouth once daily empagliflozin (Jardiance) 25 MG Indications: Type 2 diabetes mellitus with hyperglycemia, without long-term current use of insulin (CMS/HCC) Take 1 tablet (25 mg) by mouth Daily 30 tablet 3 03/05/2024 07/03/2024 Active glimepiride 2 mg oral tablet (7 sources) Sulfonylurea Start: 02-25-2019 take 1 mg by mouth twice daily Glimepiride Active 1 MG PO Twice daily February 25, 2019 12:00am Glucometer (16 sources) Start: 05-31-2017 Glucometer as directed for Dx: E11.9 May, Active levothyroxine sodium 0.1 mg oral tablet (20 sources) l-Thyroxine Start: 10-29-2023 End: 09-01-2024 take 1 tablet by mouth in the morning levothyroxine (Synthroid, Levoxyl) 100 MCG tablet Indications: Type 2 diabetes mellitus with hyperglycemia, without long-term current use of insulin (CMS/HCC) Take 1 tablet (100 mcg) by mouth in the morning. 90 tablet 1 03/05/2024 09/01/2024 Active Start: 09-27-2017 take 1 tablet by kedar th once daily Levothyroxine Active 1 TAB PO Daily February 25, 2019 12:00am Start: 09-27-2017 Synthroid 112 MCG 1 tablet every morning on an empty stomach Orally Once a day for 90 days August, Active Start: 09-24-2014 take 1 tablet by kedar th once daily levothyroxine 125 mcg (0.125 mg) Tab 125 microgram = 1 tab(s), Oral, Daily, Refills(s) 0, Thyroid Start Date: 09/24/14 Status: Ordered meloxicam 15 mg oral tablet (2 sources) Nonsteroidal Anti-inflammatory Drug Start: 03-17-2015 take 1 tablet by mouth once daily meloxicam 15 mg Tab 15 mg = 1 tab(s), Oral, Daily, # 30 tab(s), Refills(s) 0 Start Date: 03/17/15 Status: Ordered Ozempic (0.25 or 0.5 MG/DOSE) 2 MG/1.5ML (10 sources) Ozempic (0.25 or 0.5 MG/DOSE) 2 MG/1.5ML 2 mg Subcutaneous weekly Active Ozempic (1 mg dose) (2 sources) Start: 02-15-2021 inject 1 mg by subcutaneous injection every week Ozempic (1 mg dose) mg, SubCutaneous, qWeek, Refills(s) 0 Start Date: 02/15/21 Status: Ordered Ozempic, 2 MG/DOSE, 8 MG/3ML solution pen-injector (5 sources) Start: 02-24-2024 End: 03-05-2024 inject 2 mg by subcutaneous injection every week Ozempic, 2 MG/DOSE, 8 MG/3ML solution pen-injector Indications: Type 2 diabetes mellitus with hyperglycemia, without long-term current use of insulin (CMS/HCC) INJECT 2 MG SUBCUTANEOUSLY WEEKLY 3 mL 02/24/2024 03/05/2024 Discontinued (Reorder) Start: 02-24-2024 inject 2 mg by subcu taneous injection every week Ozempic, 2 MG/DOSE, 8 MG/3ML solution pen-injector Indications: Type 2 diabetes mellitus with hyperglycemia, without long-term current use of insulin (CMS/HCC) INJECT 2 MG SUBCUTANEOUSLY WEEKLY 3 mL 02/24/2024 Active End: 02-24-2024 inject 2 mg by subcutaneous injection every week Ozempic, 2 MG/DOSE, 8 MG/3ML solution pen-injector INJECT 2 MG SUBCUTANEOUSLY WEEKLY 02/24/2024 Discontinued phenazopyridine hydrochloride 200 mg oral tablet (2 sources) Start: 01-20-2021 take 1 tablet by mouth every eight hours Pyridium 200 MG 1 tablet after meals Orally Three times a day for 2 day(s) Dec, Active pioglitazone 30 mg oral tablet (8 sources) Peroxisome Proliferator Receptor alpha Agonist, Peroxisome Proliferator Receptor gamma Agonist, Thiazolidinedione Start: 03-27-2023 End: 03-05-2025 take 1 tablet by mouth once daily pioglitazone (Actos) 30 MG tablet Indications: Type 2 diabetes mellitus with hyperglycemia, without long-term current use of insulin ([facility]) Take 1 tablet (30 mg) by mouth Daily 90 tablet 3 03/05/2024 03/05/2025 Active predniSONE 20 mg oral tablet (3 sources) Start: 05-09-2021 take 1 tablet by mouth every twenty-four hours predniSONE 20 MG 1 tablet Orally Once a day for 5 day(s) Apr, Active 0.25 mg, 0.5 mg dose 1.5 ml semaglutide 1.34 mg/ml pen injector (13 sources) Start: 02-25-2019 Semaglutide (Ozempic) 0.25 mg or 0.5 mg(2 mg/1.5 mL) Pen Injector Active 0.25 MG SUBCUT every week February 25, 2019 12:00am Semaglutide, 2 MG/DOSE, (Ozempic, 2 MG/DOSE,) 8 MG/3ML solution pen-injector (3 sources) Start: 03-05-2024 End: 06-03-2024 Semaglutide, 2 MG/DOSE, (Ozempic, 2 MG/DOSE,) 8 MG/3ML solution pen-injector Indications: Type 2 diabetes mellitus with hyperglycemia, without long-term current use of insulin ([facility]) Inject 2 mg under the skin every 7 (seven) days 3 mL 1 03/05/2024 06/03/2024 Active simvastatin 20 mg oral tablet (5 sources) HMG-CoA Reductase Inhibitor Start: 06-18-2023 take 1 tablet by mouth in the evening simvastatin (Zocor) 20 MG tablet Take 20 mg by mouth in the evening 06/18/2023 Active sulfamethoxazole 800 mg / trimethoprim 160 mg oral tablet (2 sources) Dihydrofolate Reductase Inhibitor Antibacterial, Sulfonamide Antimicrobial Start: 01-20-2021 take 1 tablet by mouth every twelve hours Bactrim DS 800-160 MG 1 tablet Orally Twice a day for 10 day(s) Dec, Active traMADol hydrochloride 50 mg oral tablet (2 sources) Opioid Agonist Start: 03-17-2015 take 1 tablet by mouth every six hours as needed for pain traMADOL 50 mg Tab 50 mg = 1 tab(s), Oral, q6hr, PRN for pain, # 40 tab(s), Refills(s) 0 Start Date: 03/17/15 Status: Ordered triamcinolone acetonide 1 mg/ml topical cream (20 sources) Corticosteroid Start: 11-12-2023 triamcinolone (Kenalog) 0.1 % cream Indications: Granuloma annulare Apply to affected areas, up to twice a day when flared, do not use one the face, groin, or underarms, 30 day supply 80 g 11 11/12/2023 Active Start: 06-04-2019 Kenalog -40 mg May, 1 mL Start: 03-24-2019 KENALOG - 10 m g Feb, 1 cc Vitamin C 250 mg oral tablet (2 sources) Start: 02-15-2021 take 1 mg by mouth once daily Vitamin C 250 mg oral tablet mg tab(s), Oral, Daily, Refills(s) 0 Start Date: 02/15/21 Status: Ordered Completed/Discontinued Medications Medication Drug Class(es) Dates Sig (Normalized) Sig (Original) acetaminophen 325 mg / HYDROcodone bitartrate 5 mg oral tablet (6 sources) Opioid Agonist Start: 01-22-2021 End: 08-28-2023 take 1 tablet by mouth every four to six hours Hydrocodone-Acetam inophen Discontinued 1 TAB PO EVERY 4-6 HOURS 9 3 January 22, 2021 August 28, 2023 5:06pm ciprofloxacin 500 mg oral tablet (6 sources) Quinolone Antimicrobial Start: 01-22-2021 End: 08-28-2023 take 1 tablet by mouth every twelve hours Ciprofloxacin Hcl (Cipro) 500 mg tablet Discontinued 500 MG PO Q12H 14 January 22, 2021 12:00am August 28, 2023 5:06pm tiZANidine 4 mg oral tablet (9 sources) Central alpha-2 Adrenergic Agonist Start: 01-15-2023 Zanaflex 4 MG 1-2 tablet as needed Orally Dec, Not-Taking/PRN Problems Active Problems Problem Classification Problem Date Documented Da te Episodic/Chronic Abdominal pain (7 sources) Abdominal pain; Translations: [Unspecified abdominal pain] 02-25-2019 Episodic Administrative/social admission (2 sources) Patient encounter status; Translations: [Dietary counseling and surveillance] 03-05-2024 Episodic Asthma (2 sources) Asthma 02-15-2021 Chronic Calculus of urinary tract (20 sources) Kidney stone; Translations: [Calculus of kidney] Onset: 02-21-2022 01-22-2021 Episodic Diabetes mellitus with complications (6 sources) Type 2 diabetes mellitus with hyperglycemia; Translations: [Hyperglycemia due to type 2 diabetes mellitus] Onset: 03-20-2023 02-24-2024 Chronic Diabetes mellitus without complication (20 sources) Type 2 diabetes mellitus; Translations: [Type 2 diabetes mellitus without complications] Onset: 05-05-2021 Resolved: 05-05-2021 Chronic Disorders of lipid metabolism (18 sources) Hyperlipidemia; Translations: [Hyperlipidemia, unspecified] 02-15-2021 Chronic E Codes: Fall (3 sources) Unspecified fall, initial encounter Episodic Heart valve disorders (2 sources) Heart murmur 02-15-2021 Episodic Immunizations and screening for infectious disease (6 sources) Immunization due; Translations: [Encounter for immunization] Episodic Influenza (5 sources) Influenza due to other identified influenza virus with other respiratory manifestations; Translations: [Influenza B] Onset: 05-05-2021 Resolved: 05-05-2021 Episodic Nutritional deficiencies (2 sources) Vitamin D deficiency; Translations: [Vitamin D deficiency, unspecified] 03-05-2024 Chronic Other acquired deformities (10 sources) Spondylolisthesis; Translations: [Spondylolisthesis, lumbosacral region] Episodic Other acquired deformities (5 sources) Spondylolisthesis, lumbosacral region Episodic Other and unspecified benign neoplasm (2 sources) Parathyroid adenoma 02-15-2021 Episodic Other connective tissue disease (16 sources) Bursitis of left hip; Translations: [Other bursitis of hip, left hip] Episodic Other endocrine disorders (16 sources) Disorder of parathyroid gland; Translations: [Disorder of parathyroid gland, unspecified] Chronic Other gastrointestinal disorders (1 source) Diarrhea, unspecified Episodic Other inflammatory condition of skin (16 sources) Rosacea; Translations: [Rosacea, unspecified] Chronic Other injuries and conditions due to external causes (1 source) Other injury of unspecified body region, initial encounter Episodic Other non-traumatic joint disorders (16 sources) Arthralgia of the lower leg; Translations: [Pain in right knee] Episodic Other non-traumatic joint disorders (16 sources) Arthralgia of the pelvic region and thigh; Translations: [Pain in left hip] Episodic Other non-traumatic joint disorders (3 sources) Pain in right hip Episodic Other non-traumatic joint disorders (5 sources) Pain in right hip joint; Translations: [Pain in right hip] Episodic Other nutritional; endocrine; and metabolic disorders (2 sources) Obesity 09-24-2014 Chronic Other nutritional; endocrine; and metabolic disorders (2 sources) Severe obesity; Translations: [Class 2 severe obesity due to excess calories with serious comorbidity and body mass index (BMI) of 35.0 to 35.9 in adult ([facility])] 03-05-2024 Chronic Other upper respiratory infections (8 sources) Acute sinusitis; Translations: [Acute sinusitis, unspecified] 08-28-2023 Episodic Residual codes; unclassified (16 sources) Edema; Translations: [Edema, unspecified] Episodic Spondylosis; intervertebral disc disorders; other back problems (2 sources) Cervicalgia; Translations: [Sacrococcygeal disorders, not elsewhere classified] Episodic Sprains and strains (3 sources) Strain of muscle, fascia and tendon of the posterior muscle group at thigh level, right thigh, initial encounter; Translations: [Strain of muscle, fascia and tendon of lower back, initial encounter] Episodic Substance-related disorders (2 sources) Smoker 09-24-2014 Chronic Comment on above: Added secondary to d ocumentation in Social History. Thyroid disorders (20 sources) Hypothyroidism; Translations: [Hypothyroidism, unspecified] Onset: 10-25-2021 Resolved: 10-25-2021 Chronic Unclassified (1 source) Diarrhea, unspecified; Translations: [Diarrhea, unspecified] Onset: 06-12-2023 Unclassified (1 source) Strain of muscle, fascia and tendon of lower back, subsequent encounter; Translations: [Strain of muscle, fascia and tendon of lower back, subsequent encounter] Onset: 04-20-2023 Urinary tract infections (9 sources) Pyelonephritis; Translations: [Tubulo-interstitia l nephritis, not specified as acute or chronic] Onset: 02-21-2022 01-22-2021 Episodic Viral infection (6 sources) Disease caused by 2019-nCoV; Translations: [COVID-19] 05-05-2021 Episodic Past or Other Problems Problem Classification Problem Date Documented Date Episodic/Chronic Genitourinary symptoms and ill-defined conditions (3 sources) Frequency of micturition; Translations: [Other symptoms and signs involving the genitourinary system] Onset: 01-20-2021 Resolved: 01-20-2021 Episodic Unclassified (1 source) Cough R05.9 Onset: 05-05-2021 Resolved: 05-05-2021 Viral infection (5 sources) Disease caused by 2019-nCoV; Translations: [COVID-19] Onset: 05-05-2021 Resolved: 05-05-2021 Results Test Name Value Interpretation Reference Range Facility Glucose (Bld) [Mass/Vol]Orde red By: Marifer Valencia on 03-05-2024 Glucose Blood, POC 400 mg/dL [facility] - Hematology and Cell countson 03-05-2024 HbA1c (Bld) [Mass fraction] 11.8 % [facility] No Panel InformationOrdered By: Marifer Valencia on 03-05-2024 [facility] No Panel InformationOrdered By: Cornelio Smith on 08-28-2023 Quick Strep (POC) [facility] Patient Letter FTMCon 2023 Patient Letter [facility] August 14, 2023 AILEEN GUPTA [address] [place] [address] : 1975 Dear Aileen, You missed your scheduled appointment on: 08/14/23. Please note our appointment slots fill quickly. When you fail to cancel or reschedule an appointment the office is unable to fill the appointment slot that was reserved for you. In the future, we ask that you call 24 hours in advance to cancel your appointment. Our current reminder system gives you the opportunity to cancel by responding to our reminder text, phone call or email. You can also call the office to reschedule during normal business hours or use our on-line scheduling portal at your convenience. Our goal is to provide convenient and quality care to all of our patients. We appreciate your consideration regarding any future cancellations. Sincerely, [facility] [place] [address] [facility] No Panel InformationOrdered By: Skylar Myers on 06-12-2023 Ova and Parasite Result 1 [facility] OVA AND PARASITEon OVA AND PARASITE Final report These results were obtained using wet preparation(s) and trichrome stained smear. This test does not include testing for Cryptosporidium parvum, Cyclospora, or Microsporidia. No ova, cysts, or parasites seen. One negative specimen does not rule out the possibility of a parasitic infection. Performed at: [address] [id number] Import/Export Specialist: Mushtaq Khoury PhD, Phone: [phone] PERFORMED BY: [place] [address] PATHOLOGIST DIRECTOR OF PAYROLL KATELYNN ALARCON M.D. [facility] Comment on above: Performed By: #### O PEXAM #### [facility] , #### CUSTOOL #### [address] Stool Cultureon 06-12-2023 Stool culture Negative for Shiga Toxin 1 Negative for Shiga Toxin 2 A negative Shiga Toxin result may occur if the antigen level in the specimen is below the detection limit of the assay. Stool culture results No Salmonella, Shigella, Campy or E. coli 0157:H7 Isolated PERFORMED BY: [place] [address] PATHOLOGIST DIRECTOR OF PAYROLL KATELYNN ALARCON M.D. [facility] Comment on above: Performed By: #### O PEXAM #### [facility] , #### CUSTOOL #### [facility] [address] [place] [address] Stool bacteria identificatio n by cultureOrdered By: Skylar Myers on 06-12-2023 Bacteria identified Cx Nom (Stl) [facility] Stool ova and parasites iden tification by trichrome stainOrdered By: Skylar Myers on 06-12-2023 Ova and parasites identified Trichrome stain Nom (Stl) N/A [facility] COVID/FLU RT-PCRon 4 SARS-CoV-2 (COVID-19) RNA SABINA+probe Ql (Unsp spec) Negative [facility] [employer] Other COVID/FLU RT-PCR Negative [facility] [employer] Other Free T4 (Free Thyroxine)on 05-20-2022 Free T4 [Mass/Vol] 0.75 ng/dL Normal 0.61-1.12 [facility] Comment on above: Performed By: #### T 3F, T4F, TSH3 #### [facility] [address] Thyroid Stimulating Hormoneo n 03-20-2023 TSH Qn 6.09 m[IU]/L High 0.45-5.33 [facility] Comment on above: Result Comment: PERF ORMED BY: [facility] [address] [place] [address] PATHOLOGIST DIRECTOR OF PAYROLL KATELYNN ALARCON M.D. Performed By: #### T 3F, T4F, TSH3 #### [facility] [address] [place] [id number] [facility] Thyrotropin [Units/volume] i n Serum or PlasmaOrdered By: Noemi Eli on 03-20-2023 TSH Qn 6.09 m[IU]/L 0.45-5.33 [facility] Thyroxine (T4) free [Mass/vo lume] in Serum or PlasmaOrdered By: Noemi Eli on 03-20-2023 Free T4 [Mass/Vol] 0.75 ng/dL 0.61-1.12 [facility] Triiodothyronine (T3) Freeon 03-20-2023 Triiodothyronine (T3) Free 3.48 pg/mL Normal 2.50-3.90 [facility] Comment on above: Result Comment: PERF ORMED BY: [facility] [address] [place] [address] PATHOLOGIST DIRECTOR OF PAYROLL KATELYNN ALARCON M.D. Performed By: #### T 3F, T4F, TSH3 #### [facility] [address] Triiodothyronine (T3) Free [ Mass/volume] in Serum or PlasmaOrdered By: Noemi Eli on 03-20-2023 Free T3 [Mass/Vol] 3.48 pg/mL 2.50-3.90 [facility] Coding Summaryon 01-19-2023 Coding Summary [employer] 64 LiechqwqMQj4tGo+PGhlY WQ+YN8VXDDiO15teRMoaX 8jI9QGENsCZsoiKDEWXYd SGbPnhsMgJP0ksVEcMZTo IC8+JY0aZZQgNmrijGIpn 4T0kOQ7Y67twr4nQLeprU K2SEPfVeYaamiuf7msgSw 6IDcuNmluOyBt ELXcyY34GVL8iI79Sq71v WLqwRShx7lliJb8OqTuIG QvRUH9tUgkFYrum6FbOMF rD20gnOMxf4H5 XQIbcFphhWYxNlDhjAZ4c O3zOAuzxfzjj3dchtezVu m4vj90dVTtr5A2pND6O3D naaT2SZFzjNEr RyembCTGmO2qfvyuy9dfv icbJuYwXHArYRh2VDl0NM LikQsmEvNoIZ45UPU5TPZ ekyFsQ9XdLWWh uJslIoJ5d9P0Am1CD3MBA lowA7XFYTOVSPyfvCS+PC 81hq86L5ZhLbniQth0RHV mYDN8zJN0aE8j ICFjUIpnt8U0lHK1I1Otz cKbub2cy0ipESIiMIlkK0 4zmRMcs7X2KZXenBU9MUV bmWxiQlQgeM59 Oyc+MYInhXluc0SpFgdvc 4bmm7xjfRo2GbvxGZHdyf QlkWyjNMW4u5KmFq1nKUR gnSC4rSX7rV9x WoAmGaT1FSupX639WnNmn ZQiZtsfS26uX4PmvLC+PH TzKor8KSLbjVggMU9jB8E hZGRpbmctbGVm rHcpKA3cQQUwsqlfAMQen D5aJKQhO2k6IoXbUfX9EV ukC8YsCOUpxjaaJe25iZ6 oAfSdAfG2CWzn H6AghgR0AENddMPnMRctT OJ6Y26xy4T7OJXrPRLcLO C6jJQ9gH8lbQnlxwvraWX mdDsgdmVydGlj RVcwHMdwJ994ZGNydIypU kNvZGluZyBEYXRlOiAgMD kvMjIvMjAyMzwvdGQ+PHR bLLZ8bYasUNAp bCTzUSqdOf6wcLxbpSwlK E7kPUBlpeesUHBzyD4sQR PdbFQpjXseUE6xABJxwqy bl946UiUmUQK2 IQKeeCNeF3MxsZ4mGvTmR LUjZPTiX0DeqPIwRPhxF3 96XOqiQqM9WPDacdTuX0Z sLWFsaWduOiB0 p4P7Kf4Fb5MoanqdA7Ggc GVtNjOzWhrsTKu3F3VhIr wvdHI+TS74UNKnIG98BSu 4SFF0wSkrDVkb HVYyG4PkcM1lVrCxEAFsA GRkOyc+PHRhYmxlIHdpZH RoPScxMDAlJyBzdHlsZT0 mXk4qGBJkVMVq tZuxxZTyPyLpz4zmCCFwS RqjAB4ahDxuB8EhgXC8YJ Jaz5v5At69U93mN5KbdIN +YMRhtEK1vDG3 cL0jIwXrUdI1PQjwC315Q tYjqFDyBufib7czf8qjsC q2BwV9RRIfqrGkpBfcKKV 6a6LkXh61N06j IHdpZHRoPSIxNSUiIHZhb Qcjsw0mhP6kIt8+PGNvbC G8bVB2tV0tLbHkSlH2NEo sP834HiGnzWAb Vyiab0ccl2egjMc4BvTmQ LTiocOqkZstWOB5t7WuVk 73Z2QgiTugk5AqRma3ff6 4xQHni4E0kJJ4 I5QbIOPkjizeyZTapXkeY P7bSPHppaotWXFvtC7yOZ YeN7n3TsSxAyB7XAqsM4K uedF8EVJaxHAz VFQdiQGJrV9phuyvl1dld hseXhQzDEQuYHn9HBg6GW KxcMacUaJjJJU4XyS4KXX 9eWDozV9clFrp jsgmuK9sKgq+HDR9oZWoz ZCKLQ0aZgxdiAW+PHRkIH U2tAnvUCtoTCSjfU1kGBP tZ4b2FjVsKuD0 UFblP6MvbyX4GLUefKMxZ LPmhWTItQ8jrsury4nuew tjElXdUGDxBMq6WKq1ZZQ saWduOiBsZWZ0 HbO8ERH7dEQwwA0rwEgxp nwefC2yXbu+QmlydGggRG Z8ZEp3D0HhTjw7ZBIzhFg kMW2thBLgUCab Ts5udRdwdDfeJN2kOFKfq cydo327HlJjd7rhDAGohE RkQFojBEL1G36gr8Q2AIG kANRoNJF7dCW0 iI0slEeswgtkfMWgzBuii dCxkLgyUWraVYzdK287HT KpvIadVtQwRZm2Q4NyCgr 9IQZvdTnsTT6u uEEqPGidLj7nwOfbiSodT J0wFWRxgpkpy961ZhDtk0 eiWYOcdOEkHQdcOGA2L77 wi8Q9OLGqCZNh YGX4kIJ9lY7wdMnneuigb GVmdDsgdmVydGljYWwtYW fgB516SNKppHskQuVhkRc 6F4QpIyo3ZWLm xGjeRL5vkOZrADdmCk4iu YtllKtxHW5gCQHfehwei1 41VpJbg3gkRYNhlQOsQPh iWVT9W62cd8G1 HXNbZGMpXZK3rDS3jU0zi GlnbjogbGVmdDsgdmVydG kyRIlwCNebV505DKIsyPx nPlBhdGllbnQg SIzkPPq4P8VvAcqpwGE+P N97SMVrJR24gLHhrVPkn4 eutRw7MlGvNDPcADC1kYm dPArmv2BaWQCi Y52ooYDyd4E8YCEvdJmxa NDrKgByiVU9oK1sKOphkd qoz0zbbtgkSucfd4tbsu1 0lU71Q93kUAup ZHRoPSIzMCUiIHZhbGlnb q4umI6sRy8+NNRsyCR0zZ N0uP0eORTaBaG8LYutG72 9InRvcCIvPjxj p4cbr3bjxXd0QbO2IBWam mHefHppFXW0s6ItHf03E0 9sIHdpZHRoPSIyMCUiIHZ bgVwkep1lmG8p Ii8+UBYzdTB7cSZ9oH1jR eEgIuY1OLkwM033LnKstS NqSrfpT00uQ4JthND+PHR zMqj9SQEttWms YS9eiOIuXRlgAc2lGKF0L aYtVyZrAZbmM9JkQYJajx xrflqrvCI1LKQzGEMvwM3 5Vc6hvJbbFHTc yBCFqG5dnhakx3xxnwjyY iSfXSTmRHf8SFe4NAYtkE xfJcZuRJV0CgO7FYK1iGS htP7qtNuqjxqm gN5eW4YqYZMxiipmLm44m T1rQxTpRxE0VHitOhv+U0 NIQUZGRVIsIEtJTUJFUkx FDIU1Q0MpZpm9 RVVsmMbyCW9mhRJwSWjgU x2upRczoIjbRJ6oXSPahg xgSAXeeH5vEHLzyRWfiFu cXW2iDKLxmalb m679ZgKxKBJ8FPXsvKNwY 7WxxS9uIlOlEOSvJWPtE0 VquGSxEVxkI909JAgzSfD 5EZVazeNlL7Ip PVZaxXukAwZ7z6H1Pe9pK i5eVE5zTQe1SP51PQ34hV Bwg0L4bBH7N0BiIODsxeq jhomcuRO4XBNe JTAlfO15gJZlXGkpCc8or 1V6x823RXJeODEstF09Ek 9xbAamWQGsmNLEuR1drqs ya3dveltoDmWa DJNzOSt5EPg3WNMfiXuvW mIgSWG9AzL6HDB9iVNgrL 4rrWiqseokpX6mVyp+NDY xOQFdfgC0B5Mz Jld5PHFdrYucLR9jhLJeO SbzIu5arUjqaDkkBV5mFR WusotoYYYsjU2eAMXymWP doDkqOA2sSUQu bgoga559RsLhWIT9BHTee AItV4VlrZ0eJgOfUZRqHR DuN5NhtYUeBMevP288JZd pWtE3IMLockZm M6PiLAHwlRxjQdN9h7E1V w6ZZR3NAHB4J6UrYnw5WA HvvQyjMT2kpUXpWIwyPp6 huBqluHvnWH0f EHJfuzidEHHtqW7gBAJfw ROjaXajHV2rHZSgsufya0 56MlYiNUY3FTQehHVfA6K uvW2jDzZzMYLb EOYbC2VowAIoUTmnH827G QsdQeF8FQOckmXoW2JrXY XahIfoZeH0v7Z1Px9XdVF sS2LzK7z1R7Sc PjwvdHI+YO10WTGqTW96t JYadGQrs1oumRj6EgHbEM UtJJF8yKqgPVldn7GiWGA hS66ixRYey8F7 ECVdjHgmyYIuRjQcnDR0u U3zBAfdrsowk3oeirxbQy wbk0vfll62nB62Y46sWTr pZHRoPSIzMCUi TRDnvNwmsc3ppU1kPl2+P YGaeOJ1oCD1dZ6xHkPxIr J7IRtuZ636CoDhsEIyJgq xb9ixj3czoVx4 OeCfISXhlxPbnJklAIT2s 9CzDk02O89hURulTMLoTO WdCTOuHVGxsKgxws4ipO9 wIi8+EZ2bu6ej zm62kK05jGD+YPMkHOK3d UiwUKseRNIgvA8nHCnzKh L4FZSaMjGmxA24fCEzSEs hUq7acGlxdFvt YB1uATMncyxdl715NyZva 1gsYNZzcJGeBMezNSJ0L3 3fi6T7AHJnIGRsMOM4sKM 9sB4arLulcfae bGVmdDsgdmVydGljYWwtY MdvP854WUYfaYqfHhDgtT JeK7zgleXPKS6pDafwcDA +KCLeXIO1mPph CUevHADigU8kSEDlF8v4I sShDbO8XKsyF4JeraZ7OQ UhhLIwDVLpeTQEdE8ynrx el0okujwaUvYw LGLrSRy8LWs6YLXswBvtF yXvJMX5RtS9LPN3tIBgjY 7mwNtpqjcctJ8sCfa+Rkl OOjwvdGQ+PHRk PAE3gAjjISyqLLClsR3kH HJwN8r9DdPmMtS1HPwsX1 MiloC6KZQtqBRrNXCewAG PxM5ucgryb3ih vhxgUkVtFCUxXOf2BAf3D AGkpWuzOhXvITV6CiP7RL T3bOUafD5beDadblaiuR0 wOyc+TVJOOjwv dGQ+SOOaYNO9rPmhVDwbD YVlxZ6vDXKwN2b1VhXeKv G4MEteZ8XqgvH0ZUZzsVQ oNWYwjTMDoX8l qrkis2csziuwYlErDZIyX Fp0JVm0KOZhpTekKhDyHF K3MuU4MYY1rHDdbP5zuHo ywjzbzR8cIov+ CXP5YKR4MH70IS17Z1UcL jwvdGFibGU+PHRhYmxlIH dpZHRoPScxMDAlJyBzdHl lZG2fSi5yDWVc LWN (more content not included)... 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 01/06/2023 13:30:00 Clement Garnett DO ED Provider 01/06/2023 13:33:37 VITALS INFORMATION Vital Sign Triage Latest Temperature Tympanic Temperature Temporal Artery Pulse Rate 74 bpm 74 bpm O2 Sat 99 % 99 % Respiratory Rate Blood Pressure /85 mmHg /85 mmHg MEDICAL INFORMATION Medications Given: Medication Dose Route ketorolac 30 mg IM Allergy Information: penicillin PHYSICIAN DOCUMENTATION DISCHARGE INFORMATION: Discharge Disposition: Home Discharge Location: Home PATIENT EDUCATION INFORMATION Instructions: Hamstring Strain Rehab; Hamstring Strain; How to Take Your Blood Pressure Follow-Up: With: Address: When: Sam Ray [address] [facility] [place] [address] Within 2 to 4 days Comments: Call orthopedics on Sunday for a follow-up Do not perform deep or painful stretches or exercises, no heavy lifting. You can start to stretch very gently and lightly, stop if it is painful Continue taking your ketorolac and methocarbamol but do not drive or operate heavy machinery while taking methocarbamol as it can make you drowsy Use Tylenol and ketorolac at work Use heat therapy Return for chest pain, shortness of breath, worsening leg swelling or worsening pain DIAGNOSIS: 1:Blood pressure elevated without history of HTN; 2:Hamstring tear Patient Understands: Yes - Patient/family/caregi napoleon verbalizes understanding of instructions given Comment: Normal [facility] ED Patient Summaryon 023 ED Patient Summary [facility] - Emergency Department [address] [place] [id number] PATIENT DISCHARGE INSTRUCTIONS Patient Information Name: AILEEN GUPTA Age: 47 Years Date of : 1975 Reason For Visit: Hip pain; BACK-RT HIP/LEG PAIN Arrival Time: 01/06/2023 13:27:12 Primary Care Physician: Provider, Unlisted Attending Physician: Clement Garnett DO Comment: Visit Diagnosis: Diagnoses This Visit Blood pressure elevated without history of HTN (R03.0) Hamstring tear (S76.319A) Hip pain ([id number]) The Pharmacy at [facility] is open Sunday through Sunday from 9A to 6P and Sunday and Sunday from 9A to 5P Prescription Information: If you have been given a prescription for narcotics, seek immediate medical attention if you have any difficulty breathing or any sudden status changes such as confusion and sleepiness. If you or anyone you know is experiencing suicidal thoughts, mental health, alcohol and/or drug addiction problems; contact the Mental Health [facility] Recovery Board [facility] 20/11 Crisis Hotline -Text 4HOPE am 889575. If you received any narcotics, sedation, or any other medication that causes drowsiness for the next 24 hours, unless otherwise directed: ? Do not drive a car. ? Do not operate machinery such as power tools, lawn mowers, drills, sewing machines, or stoves ? Avoid alcoholic beverages and drugs for allergies, nerves, or sleep ? Do not make important personal or business decisions or sign any legal documents With: Address: When: Sam Ray DO [address] [facility] [place] [address] Within 2 to 4 days Comments: Call orthopedics on Sunday for a follow-up Do not perform deep or painful stretches or exercises, no heavy lifting. You can start to stretch very gently and lightly, stop if it is painful Continue taking your ketorolac and methocarbamol but do not drive or operate heavy machinery while taking methocarbamol as it can make you drowsy Use Tylenol and ketorolac at work Use heat therapy Return for chest pain, shortness of breath, worsening leg swelling or worsening pain Medication Information: The exam and treatment you received today in the [facility] Emergency Department were for an urgent problem and are not intended as complete care. It is important for you to follow up with a doctor, nurse practitioner, or physician?s pharmaceutical assistant for ongoing care. If your symptoms become worse or you do not improve as expected and you are unable to reach your usual health care provider, you should return to the Emergency Department, we are available 24 hours a day. For those patients who have received Radiology results, the interpretation of your X-ray as given to you by our Emergency Department physician is only a preliminary report. The Radiologist will review your films and if there is a change in the diagnosis you will be notified by phone. Please make sure you have provided a working phone number so we can reach you if necessary. In the event that you had a lab culture while you were a patient in the Emergency Department, you will be notified by phone if there is a need to change your antibiotic. Please make sure you have provided a working phone number so we can reach you if necessary. [facility] Emergency Department has provided you with a complete list of medications post discharge. Please inform your supervisor irrigation/provider of your visit and for further instruction on these medications. Any specific questions regarding your chronic medications and dosages should be discussed with your primary care physician(s) and/or pharmacist. Visit Information Allergies: Substance Reaction Symptoms Type Comments penicillin Drug Vital Signs: Vitals and Measurements this Visit (last charted value for your 01/06/2023 visit) Vital Signs This Visit Temperature Oral: 36.2 DegC Peripheral Pulse Rate: 74 bpm Systolic Blood Pressure: 145 mmHg Diastolic Blood Pressure: 85 mmHg SpO2: 99 % Oxygen Therapy: Room air Measurements This Visit Height/Length Dosin.940 cm Height/Length Estimated: 154.940 cm Weight Dosin.380 kg Weight Estimated: 79.380 kg Problems List: Problem Onset Comments Diabetes Patient Education Hamstring Strain Rehab Ask your health care provider which exercises are safe for you. Do exercises exactly as told by your health care provider and adjust them as directed. It is normal to feel mild stretching, pulling, tightness, or discomfort as you do these exercises. Stop right away if you feel sudden pain or your pain gets worse. Do not begin these exercises until told by your health care provider. Stretching and ceasd-sf-iergrv exercises These exercises warm up your muscles and joints and improve the movement and flexibility of your thighs. These exercises also help to relieve pain, numbness, and tingling. Talk to your health (more content not included)... Normal [facility] Body fluid albumin measureme nt (mass/volume)Ordered By: Noemi Eli on 04-04-2022 Albumin (Body fld) [Mass/Vol] 4.1 g/dL 3.2-5.5 [facility] Cholesterol [Mass/volume] in Serum or PlasmaOrdered By: Noemi Eli on 04-04-2022 Cholesterol [Mass/Vol] 181 mg/dL 140-200 [facility] Comment on above: Chol less than 200 m g/dl low riskChol 201-239 mg/dl borderline riskChol 240 mg/dl and greater high risk Cholesterol in LDL Calc [Mas s/Vol]Ordered By: Noemi Eli on 04-04-2022 Cholesterol in LDL [Mass/Vol] 115 mg/dL 0-100 [facility] Comment on above: LDL ATP III CLASSIFI CATIONLDL less than 100 mg/dL OptimalLDL 100-129 mg/dL Near or above optimalLDL 130-159 mg/dL Borderline highLDL 160-189 mg/dL HighLDL greater than 189 mg/dL Very high Cholesterol in VLDL Calc [Ma ss/Vol]Ordered By: Noemi Eli on 04-04-2022 Cholesterol in VLDL [Mass/Vol] 10 mg/dL [facility] Creatinine [Mass/volume] in UrineOrdered By: Noemi Eli on 04-04-2022 Creatinine (U) [Mass/Vol] 16.6 mg/dL [facility] Comment on above: No reference range e stablished Creatinine and Glomerular fi ltration rate.predicted panel (S/P/Bld)Ordered By: Noemi Eli on 04-04-2022 Creatinine [Mass/Vol] 0.58 mg/dL 0.44-1.03 [facility] Estimated glomerular filtrat ion rate (GFR) non- AmericanOrdered By: Noemi Eli on 04-04-2022 GFR/1.73 sq M.predicted among non-blacks MDRD (S/P/Bld) [Vol rate/Area] > 60 mL/Min [facility] No Panel InformationOrdered By: Noemi Eli on 04-04-2022 25-Hydroxy Vitamin D Total 20.1 ng/mL 30-100 [facility] Comment on above: VITAMIN D STATUS 25( [place])VITAMIN D RANGE (ng/mL) Deficient <20 Insufficient 20 to <30Sufficient 30 to 100Reference: Ren CORONADO,Carter [place], Breezy WYNN, et al. Evaluation,treatment, and prevention of vitamin D deficiency; an Endocrine Society clinical practice guideline. JCEM. 2010; 96(7):1911-30. Estimated GFR () > 60 mL/Min [facility] Comment on above: GFR estimated refere nce range: According to KDOQI guidelines, <60 ml/min/1.73m2 is sufficient to diagnose a patient with chronic kidney disease. Pharmacy Creatinine Clearance (Chem N/A [facility] Phosphate [Mass/volume] in S kieran or PlasmaOrdered By: Noemi Eli on 04-04-2022 Phosphate [Mass/Vol] 3.3 mg/dL 2.5-4.6 [facility] Serum or plasma anion gap de terminationOrdered By: Noemi Eli on 04-04-2022 Anion gap [Moles/Vol] 12.3 mmol/L 6.0-15.0 [facility] Serum or plasma calcium miguelangel urement (mass/volume)Ordered By: Noemi Eli on 04-04-2022 Calcium [Mass/Vol] 9.6 mg/dL 8.2-10.2 [facility] Serum or plasma chloride pato surement (moles/volume)Ordered By: Noemi Eli on 04-04-2022 Chloride [Moles/Vol] 99 mmol/L 95-114 [facility] Serum or plasma glucose miguelangel urement (mass/volume)Ordered By: Noemi Eli on 04-04-2022 Glucose [Mass/Vol] 218 mg/dL 70-100 [facility] Comment on above: ADA recommended refe rence rangeRandom Glucose Reference Range is dependent on time and content of last meal. Glucose of more than 200 mg/dL in a nonstressed, ambulatory subject supports the diagnosis of Diabetes Mellitus. Serum or plasma high density lipoprotein (HDL) cholesterol measurementOrdered By: Noemi Eli on 04-04-2022 Cholesterol in HDL [Mass/Vol] 56 mg/dL 35-85 [facility] Comment on above: HDL CHOL ATP-III CLA SSIFICATION Cardiovascular RiskHDL > or equal to 60 mg/dL LOWHDL < 40 mg/dL HIGH Serum or plasma potassium me asurement (moles/volume)Ordered By: Noemi Eli on 04-04-2022 Potassium [Moles/Vol] 4.4 mmol/L 3.5-5.1 [facility] Serum or plasma sodium measu rement (moles/volume)Ordered By: Noemi Eli on 04-04-2022 Sodium [Moles/Vol] 134 mmol/L 136-146 [facility] Serum or plasma total carbon dioxide measurement (moles/volume)Ordered By: Noemi Eli on 04-04-2022 CO2 [Moles/Vol] 27.1 mmol/L 22.0-30.0 [facility] Serum or plasma total choles terol/high density lipoprotein (HDL) cholesterol mass ratOrdered By: Noemi Eli on 04-04-2022 Cholesterol.total/Elsa sterol in HDL [Mass ratio] 3.2 {ratio} <5.0 [facility] Serum or plasma urea nitroge n measurement (mass/volume)Ordered By: Noemi Eli on 04-04-2022 Urea nitrogen [Mass/Vol] 10 mg/dL 9- [facility] TSH DL <= 0.005 mIU/L QnOrde red By: Noemi Eli on 04-04-2022 TSH Qn 1.44 m[IU]/L 0.45-5.33 [facility] Thyroxine (T4) free [Mass/vo lume] in Serum or PlasmaOrdered By: Noemi Eli on 04-04-2022 Free T4 [Mass/Vol] 1.85 ng/dL 0.61-1.12 [facility] Triglyceride [Mass/volume] i n Serum or PlasmaOrdered By: Noemi Eli on 04-04-2022 Triglyceride [Mass/Vol] 51 mg/dL 35-149 [facility] Comment on above: TRIG ATP III CLASSIF ICATIONTRIG less than 150 mg/dL NormalTRIG 150-199 mg/dL Borderline highTRIG 200-500 mg/dL High TRIG greater than 500 mg/dL Very highStandard traceable to the Center for Disease Conrtrol and Prevention (CDC) test method. Triiodothyronine (T3) Free [ Mass/volume] in Serum or PlasmaOrdered By: Noemi Eli on 04-04-2022 Free T3 [Mass/Vol] 9.49 pg/mL 2.50-3.90 [facility] Urine microalbumin measureme nt with detection limit of 20 mg/L or less (mass/volume)Ordered By: Noemi Eli on 04-04-2022 Albumin DL <= 20 mg/L (U) [Mass/Vol] mg/dL 0.0-1.8 [facility] Urine microalbumin/creatinin e mass ratioOrdered By: Noemi Eli on 04-04-2022 Albumin/Creatinine DL <= 20 mg/L (U) [Mass ratio] TNP [facility] Comment on above: Test not performed COVID + FLU Quick Testingon 05-05-2021 SARS-CoV-2 (COVID-19) RNA SABINA+probe Ql (Unsp spec) Positive [employer] Other COVID + FLU Quick Testing Negative [employer] Other COVID + FLU Quick Testing Positive [employer] Other Urinalysis - DIPSTICKon 12-30 Appearance (U) clear [employer] Other Bilirubin Ql (U) Negative [employer] Other Color (U) yellow [employer] Other Glucose Ql (U) trace [employer] Other Hemoglobin Ql (U) moderate [employer] Other Ketones Ql (U) Negative [employer] Other Leukocyte esterase Test strip Ql (U) trace [employer] Other Nitrite Ql (U) Positive [employer] Other pH (U) 5.5 [pH] [employer] Other Protein Ql (U) Negative [employer] Other Specific gravity (U) [Rel density] 1.020 [employer] Other Urobilinogen (U) [Mass/Vol] 0.2 mg/dL [employer] Other Urinalysis - DIPSTICK Nor [employer] Other Urine Cultureon 01-20-2021 Urine Culture >100,000 [employer] Other Urine Culture <16 [employer] Other Urine Culture <8 [employer] Other Urine Culture <4 [employer] Other Urine Culture <2 [employer] Other Urine Culture <1 [employer] Other Urine Culture <0.5 [employer] Other Urine Culture <32 [employer] Other Urine Culture <2/38 [employer] Other Body fluid albumin measureme nt (mass/volume)on 06-22-2020 Albumin (Body fld) [Mass/Vol] 4.3 g/dL 3.2-5.5 [facility] Cholesterol [Mass/volume] in Serum or Plasmaon 06-22-2020 Cholesterol [Mass/Vol] 198 mg/dL 140-200 [facility] Comment on above: Chol less than 200 m g/dl low riskChol 201-239 mg/dl borderline riskChol 240 mg/dl and greater high risk Cholesterol in LDL [Mass/vol ume] in Serum or Plasma by calculationon 06-22-2020 Cholesterol in LDL [Mass/Vol] 141 mg/dL 0-100 [facility] Comment on above: LDL ATP III CLASSIFI CATIONLDL less than 100 mg/dL OptimalLDL 100-129 mg/dL Near or above optimalLDL 130-159 mg/dL Borderline highLDL 160-189 mg/dL HighLDL greater than 189 mg/dL Very high Cholesterol in VLDL [Mass/vo lume] in Serum or Plasma by calculationon 06-22-2020 Cholesterol in VLDL [Mass/Vol] 17 mg/dL [facility] Creatinine [Mass/volume] in Urineon 06-22-2020 Creatinine (U) [Mass/Vol] 60.2 mg/dL [facility] Comment on above: No reference range e stablished Estimated glomerular filtrat ion rate (GFR) non- Americanon 06-22-2020 GFR/1.73 sq M predicted among non-blacks MDRD (S/P/Bld) [Vol rate/Area] mL/min/{1.73_m2} [facility] Otheron 06-22-2020 25-Hydroxy Vitamin D Total 23.1 ng/mL 30-100 [facility] Comment on above: VITAMIN D STATUS 25( [place])VITAMIN D RANGE (ng/mL) Deficient <20 Insufficient 20 to <30Sufficient 30 to 100Reference: Ren MF,Carter NC, Breezy WYNN, et al. Evaluation,treatment, and prevention of vitamin D deficiency; an Endocrine Society clinical practice guideline. JCEM. 2010; 96(7):1911-30. GFR/1.73 sq M.predicted MDRD (S/P/Bld) [Vol rate/Area] mL/min/{1.73_m2} [facility] Comment on above: GFR estimated refere nce range: According to KDOQI guidelines, <60 ml/min/1.73m2 is sufficient to diagnose a patient with chronic kidney disease. Pharmacy Creatinine Clearance (Chem N/A [facility] Phosphate [Mass/volume] in S kieran or Plasmaon 06-22-2020 Phosphate [Mass/Vol] 2.9 mg/dL 2.5-4.6 [facility] Serum or plasma calcium miguelangel urement (mass/volume)on 06-22-2020 Calcium [Mass/Vol] 9.1 mg/dL 8.2-10.2 [facility] Serum or plasma chloride pato surement (moles/volume)on 06-22-2020 Chloride [Moles/Vol] 104 mmol/L 95-114 [facility] Serum or plasma creatinine m easurement with calculation of estimated glomerular filtron 06-22-2020 Creatinine [Mass/Vol] 0.77 mg/dL 0.44-1.03 [facility] Serum or plasma glucose miguelangel urement (mass/volume)on 06-22-2020 Glucose [Mass/Vol] 202 mg/dL 70-100 [facility] Comment on above: ADA recommended refe rence rangeRandom Glucose Reference Range is dependent on time and content of last meal. Glucose of more than 200 mg/dL in a nonstressed, ambulatory subject supports the diagnosis of Diabetes Mellitus. Serum or plasma high density lipoprotein (HDL) cholesterol measurementon 06-22-2020 Cholesterol in HDL [Mass/Vol] 40 mg/dL 35-85 [facility] Comment on above: HDL CHOL ATP-III CLA SSIFICATION Cardiovascular RiskHDL > or equal to 60 mg/dL LOWHDL < 40 mg/dL HIGH Serum or plasma intact parat hyroid hormone measurement (mass/volume)on 06-22-2020 Parathyrin.intact [Mass/Vol] 72.4 pg/mL [facility] Serum or plasma potassium me asurement (moles/volume)on 06-22-2020 Potassium [Moles/Vol] 4.2 mmol/L 3.5-5.1 [facility] Serum or plasma sodium measu rement (moles/volume)on 06-22-2020 Sodium [Moles/Vol] 136 mmol/L 136-146 [facility] Serum or plasma thyroid stim ulating hormone (TSH) measurement by high sensitivity meton 06-22-2020 TSH Qn 3.97 u[iU]/mL 0.45-5.33 [facility] Serum or plasma total carbon dioxide measurement (moles/volume)on 06-22-2020 CO2 [Moles/Vol] 19.7 mmol/L 22.0-30.0 [facility] Serum or plasma total choles terol/high density lipoprotein (HDL) cholesterol mass beatrice 06-22-2020 Cholesterol.total/Elsa sterol in HDL [Mass ratio] 5.0 {ratio} [facility] Serum or plasma urea nitroge n measurement (mass/volume)on 06-22-2020 Urea nitrogen [Mass/Vol] 14 mg/dL 01-20 [facility] Thyroxine (T4) free [Mass/vo lume] in Serum or Plasmaon 06-22-2020 Free T4 [Mass/Vol] 1.05 ng/dL 0.61-1.12 [facility] Triglyceride [Mass/volume] i n Serum or Plasmaon 06-22-2020 Triglyceride [Mass/Vol] 85 mg/dL 35-149 [facility] Comment on above: TRIG ATP III CLASSIF ICATIONTRIG less than 150 mg/dL NormalTRIG 150-199 mg/dL Borderline highTRIG 200-500 mg/dL High TRIG greater than 500 mg/dL Very highStandard traceable to the Center for Disease Conrtrol and Prevention (CDC) test method. Urine microalbumin measureme nt with detection limit of 20 mg/L or less (mass/volume)on 06-22-2020 Albumin DL <= 20 mg/L (U) [Mass/Vol] 1.1 mg/dL 0.0-1.8 [facility] Urine microalbumin/creatinin e mass ratioon 06-22-2020 Albumin/Creatinine DL <= 20 mg/L (U) [Mass ratio] 18.0 mg/g 0.0-30.0 [facility] Comment on above: 30-300 mg/g indicate s an increased risk for diabetic nephropathy. Greater than 300 mg/g is consistent with clinical nephropathy. (Am. J. Kidney Disease 1995, 25:107) Respiratory specimen 2019 no heber coronavirus RNA detection by probe and target amplifion 04-07-2020 Respiratory specimen 2019 novel coronavirus RNA detection by probe and target amplifi Not detected Not Detected [facility] Comment on above: This nucleic acid am plification test was developed and itsperformance characteristics determined by [facility]. Nucleic acid amplification tests include PCRand TMA. This test has not been FDA cleared or approved.This test has been authorized by FDA under an Emergency UseAuthorization (EUA). This test is only authorized forthe duration of time the declaration that circumstancesexist justifying the authorization of the emergency use ofin vitro diagnostic tests for detection of SARS-CoV-2 virusand/or diagnosis of COVID-19 infection under ogcheca041(b)(1) of the Act, 21 U.S.C. 360bbb-3(b) (1), unless theauthorization is terminated or revoked sooner.When diagnostic testing is negative, the possibility of afalse negative result should be considered in the contextof a patient's recent exposures and the presence ofclinical signs and symptoms consistent with COVID-19. Anindividual without symptoms of COVID-19 and who is notshedding SARS-CoV-2 virus would expect to have a negative(not detected) result in this assay.Performed at: [facility] [id number] [facility], [place] [id number] Director: Ihsan Issa MD, Phone: [phone] Vital Signs Date Time Vital Sign Value Performing Clinician Facility 03-05-2024 11:04-0500 Body height 154.9 cm Noemi Eli MD Work Phone: [facility] [facility] 03-05-2024 11:04-0500 Body mass index (BMI) [Ratio] 35.71 kg/m2 Noemi Eli MD Work Phone: [facility] 03-05-2024 11:04-0500 Body weight 85.73 kg Noemi Eli MD Work Phone: [facility] 03-05-2024 11:04-0500 Diastolic blood pressure 76 mm[Hg] Noemi Eli MD Work Phone: [facility] 03-05-2024 11:04-0500 Heart rate 79 /min Noemi Eli MD Work Phone: [facility] 03-05-2024 11:04-0500 Respiratory rate 18 /min Noemi Eli MD Work Phone: [facility] 03-05-2024 11:04-0500 Systolic blood pressure 120 mm[Hg] Noemi lEi MD Work Phone: [facility] 08-28-2023 17:07-0400 Body temperature 98.4 [degF] DO Luigi Austin Work Phone: [facility] 08-28-2023 17:07-0400 Body weight 79.37 kg DO Luigi Austin Work Phone: [facility] 08-28-2023 17:07-0400 Heart rate 78 /min DO Luigiebony Austin Work Phone: [facility] 08-28-2023 17:07-0400 Respiratory rate 20 /min DO Luigi Austin Work Phone: [facility] 08-28-2023 17:07-0400 SaO2% (BldA) [Mass fraction] 97 % DO Luigiebony Simpsons Work Phone: [facility] 06-11-2023 16:05-0500 Body height 157.48 cm Skylar Meyrs Other [employer] Other 06-11-2023 16:05-0500 Body mass index (BMI) [Ratio] 31.64 kg/m2 Skylar Myers Other [employer] Other 06-11-2023 16:05-0500 Body temperature 98.4 [degF] Skylar Myers Other [employer] Other 06-11-2023 16:05-0500 Body weight 78.47 kg Skylar Myers Other [employer] Other 06-11-2023 16:05-0500 Respiratory rate 18 /min Skylar Myers Other [employer] Other 06-11-2023 16:05-0500 SaO2% (BldA) [Mass fraction] 99 % Skylar Myers Other [employer] Other 04-12-2023 08:15-0500 Body height 157.48 cm Keagan Rahman Other [facility] 04-12-2023 08:15-0500 Body mass index (BMI) [Ratio] 31.71 kg/m2 Keagan Rahman Other [employer] Other 04-12-2023 08:15-0500 Body weight 78.65 kg Keagan Rahman Other [facility] 04-12-2023 08:15-0500 Diastolic blood pressure 82 mm[Hg] Keagan Rahman Other [facility] 04-12-2023 08:15-0500 Respiratory rate 16 /min Keagan Rahman Other [facility] [employer] Other 04-12-2023 08:15-0500 SaO2% (BldA) [Mass fraction] 98 % Keagan Rahman Other [facility] [employer] Other 04-12-2023 08:15-0500 Systolic blood pressure 122 mm[Hg] Keagan Rahman Other [facility] 02-01-2023 19:18-0400 Body height 154.94 cm DO Luigi Austin Work Phone: [facility] 02-01-2023 19:18-0400 Body temperature 100.2 [degF] DO Luigi Austin Work Phone: [facility] 02-01-2023 19:18-0400 Body weight 79.6 kg DO Luigi Austin Work Phone: [facility] 02-01-2023 19:18-0400 Diastolic blood pressure 84 mm[Hg] DO Luigiebony Austin Work Phone: [facility] 02-01-2023 19:18-0400 Heart rate 94 /min DO Luigi Simpsons Work Phone: [facility] 02-01-2023 19:18-0400 Respiratory rate 18 /min DO Luigi Austin Work Phone: [facility] 02-01-2023 19:18-0400 SaO2% (BldA) [Mass fraction] 97 % DO Luigi Austin Work Phone: [facility] 02-01-2023 19:18-0400 Systolic blood pressure 141 mm[Hg] DO Luigi Simpsons Work Phone: [facility] 01-15-2023 12:45-0400 Body height 157.48 cm Luigi Simpsonrobson Other [facility] [employer] Other 01-15-2023 12:45-0400 Body mass index (BMI) [Ratio] 33.1 kg/m2 Luigiebony Simpsonrobson Other [employer] Other 01-15-2023 12:45-0400 Body weight 82.1 kg Luigi Farnaz Other [employer] Other 01-15-2023 12:45-0400 Diastolic blood pressure 92 mm[Hg] Luigi Austin Other [employer] Other 01-15-2023 12:45-0400 Respiratory rate 16 /min Luigi Austin Other [employer] Other 01-15-2023 12:45-0400 SaO2% (BldA) [Mass fraction] 97 % Luigi Austin Other [employer] Other 01-15-2023 12:45-0400 Systolic blood pressure 160 mm[Hg] Luigi Austin Other [employer] Other 02-21-2022 08:45-0400 Blood Pressure Location Lui Rallyware [facility] 02-21-2022 08:45-0400 Diastolic blood pressure 87 mm[Hg] Lui Rallyware [facility] 02-21-2022 08:45-0400 Heart rate 78 /min Lui [facility] 02-21-2022 08:45-0400 Systolic blood pressure 145 mm[Hg] Lui [employer]allyware [facility] 05-05-2021 10:45-0500 Body height Luigi Farnaz Other [employer] Other 01-20-2021 17:55-0400 Body height Mary Ginty Other [employer] Other 01-20-2021 17:55-0400 Body mass index (BMI) [Ratio] 31.09 kg/m2 Mary Ginty Other [employer] Other 01-20-2021 17:55-0400 Body temperature 98.1 [degF] Mary Ginty Other [employer] Other 01-20-2021 17:55-0400 Body weight 77.11 kg Mary Ginty Other [employer] Other 01-20-2021 17:55-0400 Respiratory rate 20 /min Mary Ginty Other [employer] Other 01-20-2021 17:55-0400 SaO2% (BldA) [Mass fraction] 98 % Mary Ginty Other [employer] Other Encounters Encounter Date Encounter Type Care Provider Facility Start: 03-11-2024 End: 03-18-2024 Telephone encounter Noemi Eli MD Work Phone: [facility] Comment on above: Med Refill Start: 03-05-2024 End: 03-05-2024 Bamboo flowsheet Noemi Eli MD Work Phone: [facility] Start: 03-05-2024 End: 03-05-2024 Bamboo flowsheet Noemi Eli MD Work Phone: [facility] Start: 03-05-2024 End: 03-05-2024 Office outpatient visit 25 minutes Noemi Eli MD Work Phone: [facility] Comment on above: Type 2 diabetes simi itus with hyperglycemia, without long-term current use of insulin ([facility]) (Primary Dx); 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[facility]); Vitamin D deficiency; Encounter for dietary consultation; History of parathyroid surgery; Class 2 severe obesity due to excess calories with serious comorbidity and body mass index (BMI) of 35.0 to 35.9 in adult ([facility]) Start: 03-05-2024 End: 03-05-2024 ambulatory NOEMI ELI Not Available Start: 02-23-2024 End: 02-24-2024 Refill Noemi Eli MD Work Phone: [facility] Comment on above: Type 2 diabetes simi itus with hyperglycemia, without long-term current use of insulin ([facility]) (Primary Dx) Start: 11-12-2023 End: 11-12-2023 ambulatory RAFY BALBUENA Not Available Start: 10-30-2023 End: 10-30-2023 ambulatory MANJEET FIGUEROA Not Available Start: 08-28-2023 End: 08-28-2023 ambulatory DO Luigi Austin Work Phone: [facility] Work Phone: Start: 08-28-2023 End: 08-28-2023 Patient encounter procedure DO Luigi Austin Work Phone: [facility] [place] Work Phone: Start: 08-14-2023 End: 08-15-2023 ambulatory Lui CARTWRIGHT Facility: [place] Start: 08-14-2023 End: 08-14-2023 Patient encounter procedure Lui CARTWRIGHT [facility] [place] Start: 06-12-2023 End: 06-12-2023 ambulatory Skylar Myers Facility:[facility] Start: 06-12-2023 End: 06-12-2023 ambulatory DO Luigi Austin Work Phone: [facility] Work Phone: Start: 06-12-2023 End: 06-12-2023 Patient encounter procedure DO Luigi Austin Work Phone: [facility]-Lab Main Left Hand Work Phone: Start: 06-11-2023 End: 06-11-2023 ambulatory Skylar Myers Other [employer] Other Start: 06-11-2023 Office outpatient vi sit 15 minutes Skylar Myers [facility] [address] Start: 04-20-2023 End: 04-20-2023 ambulatory Luigi Austin Facility:[facility] Start: 04-20-2023 End: 04-20-2023 Discharged Recurring DO Luigi Austin Work Phone: [facility] [place] Work Phone: Start: 04-17-2023 End: 04-17-2023 ambulatory Luigi Austin Other [employer] Other Start: 04-17-2023 Telephone encounter Luigi Austin [facility] [place] Start: 04-12-2023 End: 04-12-2023 ambulatory Keagan Rahman Other [employer] Other Start: 04-12-2023 Office consultation new/estab patient 40 min Keagan Rahman [facility] [place] Start: 04-12-2023 End: 04-12-2023 Patient encounter procedure DO Luigi Austin Work Phone: [facility] [place] Work Phone: Start: 2023 End: 2023 ambulatory Luigi Austin Other [employer] Other Start: 2023 Telephone encounter Luigi Austin [facility] [place] Start: 03-20-2023 End: 03-20-2023 ambulatory Luigi Austin Facility:[facility] Start: 03-20-2023 End: 03-20-2023 ambulatory DO Luigi Austin Work Phone: [facility] Work Phone: Start: 03-20-2023 End: 03-20-2023 Patient encounter procedure DO Luigi Austin Work Phone: [facility] Start: 02-23-2023 End: 02-23-2023 ambulatory Luigi Austin Other [employer] Other Start: 02-23-2023 Telephone encounter Luigi Austin [facility] [place] Start: 02-09-2023 End: 02-09-2023 ambulatory Luigi Austin Other [employer] Other Start: 02-09-2023 Telephone encounter Luigi Austin [facility] [place] Start: 02-05-2023 End: 02-05-2023 ambulatory Luigi Austin Other [employer] Other Start: 02-05-2023 Telephone encounter Luigi Austin [facility] [place] Start: 02-01-2023 End: 02-01-2023 Emergency department patient visit Luigiebony Austin Facility:[facility] Start: 02-01-2023 End: 02-01-2023 Emergency department patient visit DO Luiig Austin Work Phone: [facility] Work Phone: Start: 01-30-2023 End: 01-30-2023 ambulatory Luigi Austin Other [employer] Other Start: 01-30-2023 Telephone encounter uLigi Simpsons [facility] [place] Start: 01-15-2023 End: 01-15-2023 ambulatory Luigiebony Simpsons Other [employer] Other Start: 01-15-2023 Office outpatient vi sit 25 minutes Luigi Austin [facility] [place] Start: 01-15-2023 Telephone encounter Luigi Austin [facility] [place] Start: 01-09-2023 End: 01-09-2023 ambulatory Luigi Austin Other [employer] Other Start: 01-09-2023 Telephone encounter Luigi Austin [facility] [place] Start: 01-06-2023 End: 01-06-2023 Emergency department patient visit Clement Garnett Facility:[facility] Start: 04-04-2022 End: 04-04-2022 ambulatory DO Luigi Austin Work Phone: [facility] Work Phone: Start: 04-04-2022 End: 04-04-2022 Patient encounter procedure DO Luigi Austin Work Phone: [facility] Main Left Hand Start: 02-21-2022 End: 02-21-2022 Patient encounter procedure Lui CARTWRIGHT [facility] Start: 02-20-2022 End: 02-20-2022 ambulatory DO Luigiebony Austin Work Phone: [facility] Work Phone: Start: 02-20-2022 End: 02-20-2022 Patient encounter procedure DO Luigi Austin Work Phone: [facility]-XRay Main Left Hand Start: 10-25-2021 End: 10-25-2021 ambulatory Luigi Austin Other [employer] Other Start: 10-25-2021 Telephone encounter Luigi Austin [facility] [place] Start: 05-05-2021 End: 05-05-2021 ambulatory Luigi Austin Other [employer] Other Start: 05-05-2021 Nursing evaluation o f patient and report Luigi CARRERA [facility] Start: 05-05-2021 Telephone encounter Luigi CARRERA [facility] Start: 01-23-2021 Telephone encounter Mary Ashraf [facility] Start: 01-20-2021 Office outpatient vi sit 15 minutes Mary Boatengnithinalfonso [facility] Start: 06-22-2020 End: 06-22-2020 Patient encounter procedure Luigi Austin -[facility] Start: 04-07-2020 End: 04-07-2020 Patient encounter procedure Luigi Austin -[place] COVID Testing Procedures Date Procedure Procedure Detail Performing Clinician Start: 03-05-2024 Gluc bld gluc mntr d ev cleared fda spec home use Noemi Eli MD Work Phone: Start: 08-28-2023 Quick Strep (POC) DO Rabia Austin Work Phone: Start: 06-12-2023 Microbial ova-parasi te examination, fecal DO Luigi Austin Work Phone: Start: 06-12-2023 Ova and Parasite Res ult 1 DO Luigi Austin Work Phone: Start: 06-12-2023 Stool culture for bacteria DO Luigi Austin Work Phone: Start: 02-20-2022 Diagnostic radiograp hy of abdomen DO Luigi Austin Work Phone: Start: 01-20-2021 Piperacillin/tazobactam Mary Ashraf Other Colonoscopy Lui CARTWRIGHT Dilation and curetta ge of uterus Lui CARTWRIGHT H/O: surgery History of parat hyroid surgery Noemi Eli MD Work Phone: Hernia repair [employer] Comment on above: left inguinal at age 13 Plan of Treatment Date Care Activity Detail Author Start: 03-05-2025 Urine screening for protein Diabetes: Urine Protein Screening [facility] Start: 06-05-2024 Hemoglobin A1c measurement Diabetes: Hemoglobin A1C [facility] Start: 04-21-2024 End: 04-21-2024 Patient encounter procedure 04/21/2024 9:00 AM EST Office Visit [facility] [address] [place] [id number] Noemi Eli MD [address] [place] [address] [facility] Start: 03-05-2024 End: 03-05-2025 25-hydroxyvitamin D3 [Mass/volume] in Serum or Plasma Vitamin D 25 hydroxy Total Lab Routine Type 2 diabetes mellitus with hyperglycemia, without long-term current use of insulin ([facility]) Expected: 03/05/2024 (Approximate), Expires: 03/05/2025 [facility] Work Phone: Comment on above: Expected: 03/05/2024 (Approximate), Expi res: 03/05/2025 Start: 03-05-2024 End: 03-05-2025 Lipid 1996 panel - Serum or Plasma Lipid panel Lab Routine Type 2 diabetes mellitus with hyperglycemia, without long-term current use of insulin ([facility]/HCC) Expected: 03/05/2024 (Approximate), Expires: 03/05/2025 [facility] Comment on above: Expected: 03/05/2024 (Approximate), Expi res: 03/05/2025 Start: 03-05-2024 End: 03-05-2025 Microalbumin/Creatinine panel in random Urine Microalbumin / creatinine urine ratio Lab Routine Type 2 diabetes mellitus with hyperglycemia, without long-term current use of insulin (CMS/HCC) Expected: 03/05/2024 (Approximate), Expires: 03/05/2025 [facility] Comment on above: Expected: 03/05/2024 (Approximate), Expi res: 03/05/2025 Start: 03-05-2024 End: 03-05-2025 Renal function panel Renal function panel Lab Routine Type 2 diabetes mellitus with hyperglycemia, without long-term current use of insulin ([facility]/HCC) Expected: 03/05/2024 (Approximate), Expires: 03/05/2025 [facility] Comment on above: Expected: 03/05/2024 (Approximate), Expi res: 03/05/2025 Start: 03-05-2024 End: 03-05-2025 Thyrotropin [Units/volume] in Serum or Plasma TSH Lab Routine 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CMS/HCC) Expected: 03/05/2024 (Approximate), Expires: 03/05/2025 [facility] Comment on above: Expected: 03/05/2024 (Approximate), Expi res: 03/05/2025 Start: 03-05-2024 End: 03-05-2025 Thyroxine (T4) free [Mass/volume] in Serum or Plasma T4, free Lab Routine 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CMS/HCC) Expected: 03/05/2024 (Approximate), Expires: 03/05/2025 [facility] Comment on above: Expected: 03/05/2024 (Approximate), Expi res: 03/05/2025 Start: 03-05-2024 End: 03-05-2025 Triiodothyronine (T3) Free [Mass/volume] in Serum or Plasma T3, free Lab Routine 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[facility]/HCC) Expected: 03/05/2024 (Approximate), Expires: 03/05/2025 [facility] Comment on above: Expected: 03/05/2024 (Approximate), Expi res: 03/05/2025 Start: 03-05-2024 End: 03-05-2024 Patient encounter procedure 03/05/2024 10:50 AM EST Office Visit [facility] [address] [place] [address] Noemi Eli MD [address] [place] [address] Type 2 diabetes mellitus with hyperglycemia, without long-term current use of insulin [place] Comment on above: Type 2 diabetes mellitus with hyperglyce zoie, without long-term current use of insulin ([facility] Start: 09-01-2024 Influenza vaccination Influenza Vaccine (#1) [facility] Start: 06-12-2023 Stool culture Stool Culture [facility] Start: 06-12-2023 [facility] Start: 2016 Screening for malignant neoplasm of breast Mammogram [facility] Start: 2006 Screening for malignant neoplasm of cervix [facility] Start: 1997 Screening for malignant neoplasm of cervix Pap Smear [facility] Start: 1995 Urine screening for protein Diabetes: Urine Protein Screening [facility] Start: 1986 Glaucoma screening Diabetes: Retinopathy Screening [facility] Start: 1976 Hemoglobin A1c measurement Diabetes: Hemoglobin A1C [facility] Start: 1976 Screening for malignant neoplasm of colon [facility] Bacteria identified in Stool by Culture [facility] Ova and parasites identified in Unspecified specimen by Light microscopy [facility] Patient referral [facility] Work Phone: Immunizations Immunization Date Immunization Notes Care Provider Fa kala 09-13-2021 SARS-CoV-2 mRNA ([id number] richie) vaccine Lui CARTWRIGHT [facility] 08-17-2020 SARS-CoV-2 (COVID-19) mRNA-1273 vaccine Lui CARTWRIGHT [facility] 07-23-2020 SARS-CoV-2 (COVID-19) Ad26 vaccine, recombinant Lui CARTWRIGHT [facility] 07-20-2020 SARS-CoV-2 (COVID-19) mRNA-1273 vaccine Lui [employer] [facility] Comment on above: Result Comment: 2021: 41 07-02-2020 SARS-CoV-2 (COVID-19) Ad26 vaccine, recombinant Lui CARTWRIGHT [facility] 02-16-2020 influenza virus vaccine, unspecified formulation Lui CARTWRIGHT [facility] 06-04-2019 influenza virus vaccine, unspecified formulation Lui CARTWRIGHT [facility] 06-04-2019 influenza, injectable, quadrivalent, preservative free DO Luigiebony Austin Work Phone: [facility] 06-04-2019 Kenalog -40 mg Mary Ginty Other [employer] [facility] [employer] Other 06-04-2019 influenza, injectable, quadrivalent, contains preservative Mary Ginty Other [facility] [employer] Other 03-24-2019 KENALOG - 10 mg Mary Ginty Other [employer] Other 05-31-2017 measles, mumps and rubella virus vaccine Mary Ginty Other [facility] 05-31-2017 tetanus toxoid, reduced diphtheria toxoid, and acellular pertussis vaccine, adsorbed Mary Ginty Other [facility] 05-31-2017 influenza, seasonal, injectable Mary Ginty Other [facility] 05-31-2017 influenza virus vaccine, unspecified formulation Lui CARTWRIGHT [facility] NEGATED: Highlighted row has not occurred!01-15-2023 influenza, seasonal, injectable Patient Objection Luigi Simpsonrobson Other [employer] Other Payers Date Payer Category Payer Self-pay [id number] 2019 Private Health Insurance [facility] MEDICAID [id number] 2019 Medicaid [id number] 2015 Unknown [id number] 1976 Unknown [id number] 1976 Unknown [id number] 1976 Unknown [id number] 1976 Unknown [id number] 1976 Unknown [id number] Unknown [id number] Unknown [id number] Unknown [id number] Unknown [id number] Social History Date Type Detail Facility [facility]: [facility] [place] Start: 1975 Sex Assigned At Female F [facility] Start: 11-12-2023 Sex Assigned At F [facility] Start: 05-05-2021 End: 05-05-2021 Tobacco smoking status NHIS Current Light tobacco smoker [facility] Start: 02-21-2022 Tobacco smoking status Heavy t obacco smoker (finding) [facility] Tobacco smoking status Never [facility] Start: 02-01-2023 End: 10-30-2023 Tobacco smoking status NHIS Ex-smoker (finding) [facility] History of tobacco use Cigarette Smoker [facility] Start: 10-30-2023 Tobacco use and exposure Smokeless tobacco non-user [facility] Start: 11-12-2023 End: 03-03-2024 Alcoholic beverage intake Lifetime non-drinker (finding) [facility] Start: 11-12-2023 History of Social function [facility] Start: 1975 Sex assigned at Not on file N [facility] Medical Equipment Procedure Code Equipment Code Equipment Origin al Text Equipment Identifier Dates Start: 05-31-2017 Goals Date Patient Goal Desired Activity /State Functional Status Date Assessment Result Facility 02-21-2022 Functional Status N/A [facility] Clinical Notes 05-02-2014 to 03-11-2024 Telephone Encounter - Pablo Lemus - 03/11/2024 1:20 PM ESTTelephone Encounter - Pablo Lemus - 03/11/2024 1:20 PM Amilcar Eli MD - 03/05/2024 10:50 AM EST Note Date & Type Note Facility 03-11-2024 Telephone encount er Note Pt needs PA for Ozempic, shows denied, would like call with an update please. Thank you! Please give the patient a call, she's called and left a message again about this denial. [facility] 03-11-2024 Miscellaneous Notes Formattin g of this note might be different from the original. Pt needs PA for Ozempic, shows denied, would like call with an update please. Thank you! Please give the patient a call, she's called and left a message again about this denial. documented in this encounter [facility] 03-05-2024 History of Presen t illness Narrative Aileen Gupta is a 48 y.o. female Noemi Eli MD presents with chief complaint of Thyroid Problem, Diabetes, and Follow-up HPI: Interim history: 02/2024 Followup visit 03/05/2024 for type 2 diabetes. A1c 11.6, bg 400. She is currently on Invokana 300 and off Ozempic 1 mg once weekly, and levothyroxine 100 mcg daily, does not take pioglitazone yet, can not take metformin, have skin lesions looks like eczema on her bilateral hand. Interim history: 02/2023 Followup visit 03/27/2023 for type 2 diabetes. A1c 10.2, bg 361. She is currently on Invokana 300 and Ozempic 1 mg once weekly, and levothyroxine 100 mcg daily. lab on 02/2023 TSH 6.09, FT4 0.75, FT3 3.48 Interim history: 07/2022 Followup visit 08/24/2022 for type 2 diabetes. A1c 9.5, bg 195. Labs done. She is currently on Invokana 300 and Ozempic 1 mg once weekly, and levothyroxine 112 mcg daily. Interim history: 03/2022 Followup visit 04/07/2022 for type 2 diabetes. A1c 8 with her PCP. Labs done. She is currently on Invokana 300 and Ozempic 1 mg once weekly, and levothyroxine 112 mcg daily. lab on 03/2022 calcium 9.6, TC 1881, HDL 56, TG 51, LDL 115, TSH 1.85, FT4 1.44 ( 0.61-1.12), FT3 9.45( 2.5-3.9), VIT D 20. Interim history: 09/2020 Followup visit 10/27/20 for type 2 diabetes. A1c 9.9 in the office. Labs done. She is currently on Invokana 300 and Ozempic 1 mg once weekly, and levothyroxine 112 mcg daily. meds on and off Interim history: 11/2020 Followup visit 12/17/20 for type 2 diabetes. A1c 7.6 in the office. Labs done. She is currently on Invokana 300 and Ozempic 1 mg once weekly, and levothyroxine 112 mcg daily. Interim history: 05/2020 Followup visit 06/23/20 for type 2 diabetes. A1c 8.6 in the office. Labs done. Kidney function within normal limits. Calcium normal. Total cholesterol 198, HDL 40, triglycerides 85, LDL 141. She is not on any statin. Will start her on simvastatin 20 mg once a day. TSH 3.97, free T4 1.05, vitamin D 23, albumin/creatinine 18. She is currently on Invokana 300 and Ozempic 0.5 mg once weekly, off glimepiride, and levothyroxine 112 mcg daily. Interim History: 10/2019. Follow-up visit of 11/25/2019. A1c in the office 9, blood sugar 342. Labs; albumin/creatinine 28, kidney function within normal limits, calcium 9.9, vitamin D 27, total cholesterol 173, HDL 40, triglycerides 68, LDL 115, TSH 1.23, and free T4 mildly high at 1.73. She is off Invokana. Glimepiride 2 mg, takes half tablet twice a day. Ozempic off for a couple of weeks. She starts back 0.5 mg once weekly and her pharmacy gave her Januvia instead of Invokana and I told her they are not supposed to change her medications and give her something I did not prescribe. She needs to be Ozempic and Januvia because they work at the same time and we will need to start her back on Invokana. Interim History: 06/2019. Follow-up visit of 07/02/2019 for status post parathyroid surgery on April 18, 2019 for left lower parathyroid 500 mg and no new labs. She is still on Invokana 300, glimepiride 2 mg half a tablet twice a day, and Ozempic she just started back 0.25 mg once weekly. A1c 6.9 in the office and blood sugar is 129, so happy for that. She has a surgical scar due to parathyroid surgery. Interim history 02/2019. Followup visit 03/06/2019 for thyroid, parathyroid, diabetes followup and last time we made changes in her insulin and her diabetes medication and blood sugar is much better, lowest 104, highest 224, average 149. Currently, she is on Invokana 300, glimepiride 2 mg half tablet twice a day and Ozempic 0.5 mg once a day. Accidentally, we checked her lab and found to have calcium 10.6 with a repeat at 10.8 and parathyroid of 110 ( and 88). We did ultrasound, shows right lobe of 3.5 x 1 x 0.8 cm, left lobe 3.1 x 1.2 x 0.9 cm, with 16 x 8 x 7 mm solid hypoechoic in left lobe and she mentioned her sister has history of parathyroid surgery and lab done, total cholesterol 210, HDL 41, triglyceride 109, LDL 147, C-peptide 3.3 and vitamin D 22 and albumin over creatinine 21. HPI: 02/15 New patient sent from Dr. Luigi Austin for uncontrolled diabetes and hypothyroidism. For her thyroid, she is on medication from almost 2004. She was on 125. In October 2018, decreased to 112 due to TSH 5.4 plus free T4 1.2, and now lab in January 2019, TSH within normal limits 2.07, free T4 1.04 (0.61-1.12). For her diabetes, she has diabetes since 2004 and she used to be on insulin after her delivery and during her , but now only on Invokana 300 once a day, unable to tolerate metformin due to GI symptoms. She used it for almost more than six months. She used to be on Januvia for a short time and then switched to Invokana, used to be on glimepiride and she stopped due to things not controlled. She is so afraid of insulin at this time. No ulcer or skin break in her feet. No numbness or tingling. Due for eye exam. SUBJECTIVE: MEDICATIONS: Current Outpatient Medications Medication Instructions biotin 3 MG tablet Take by mouth cholecalciferol (VITAMIN D-3) 1,000 Units, Daily empagliflozin (JARDIANCE) 25 mg, Oral, Daily levothyroxine (SYNTHROID, LEVOXYL) 100 mcg, Oral, Every morning Ozempic (2 MG/DOSE) 2 mg, Subcutaneous, Every 7 days pioglitazone (ACTOS) 30 mg, Daily pioglitazone (ACTOS) 30 mg, Oral, Daily simvastatin (ZOCOR) 20 mg, Every evening triamcinolone (Kenalog) 0.1 % cream Apply to affected areas, up to twice a day when flared, do not use one the face, groin, or underarms, 30 day supply ALLERGIES: Allergies Allergen Reactions Cranberry Extract Anaphylaxis, Cough, Dermatitis, Rash, Shortness of breath, Swelling and Wheezing Other Reaction(s): throat swelling, sob Penicillins Anaphylaxis, Dermatitis, GI intolerance, Rash, Shortness of breath, Swelling and Unknown Other Reaction(s): Anaphylaxis, hives Other Reaction(s): nausea Clavulanic Acid Other Reaction(s): anaphylaxis Glimepiride Other Reaction(s): Unknown Reaction Metformin Other Reaction(s): stomach upset Past Medical History: Diagnosis Date Autoimmune thyroiditis (CMS/HCC) Cervicalgia Fibromyalgia History of hernia repair Hypothyroid (CMS/HCC) Left tennis elbow Nontoxic multinodular goiter (CMS/HCC) Other specified postprocedural states Primary hyperparathyroidism (CMS/HCC) Type 2 diabetes mellitus with hyperglycemia (CMS/HCC) Vitamin D deficiency, unspecified Past Surgical History: Procedure Laterality Date APPENDECTOMY HERNIA REPAIR SKIN BIOPSY THYROIDECTOMY REVIEW OF SYMPTOMS: 14 POINT OF SYSTEM REVIEWED AND NEGATIVE OBJECTIVE: Constitutional: Afebrile @ home; no weakness or night sweats SKIN: No change in skin color; no itching, rash or lesions; no hair loss; HEENT: No HAs or injury; no dizziness; No difficulty with vision; no eye pain, discharge or lesions; no hearing loss or difficulty; no nasal discharge, NECK: No pain, limitation of motion, lumps or swollen glands RESP: No cough, wheezing or difficulty breathing. No CP with breathing; CARDIO: No CP , SOB or fatigue, No edema, palpitations or dyspnea with exertion GI: No N/V/D or abd. pain; good appetite with no recent change. No heart burn, liver or gallbladder disease; no rectal bleeding or pain : No urinary pain , frequency or odor. MUSCULOSKELETAL: No muscle pain or cramps; no extremity weakness.No joint pain, stiffness, swelling or limitation of movement NEUROLOGY: No H/O seizures, stroke or fainting. No weakness, tremors. Hematology: No bleeding problems or excessive bruising ENDOCRINE: No increase in hunger, thirst or urination; admits compliance to medical management plan Feet: numbness tingling yes , ulcers or skin break no Lab Results Component Value Date HGBA1C 11.8 03/05/2024 Lab Results Component Value Date GLU 400 03/05/2024 GLU 135 04/18/2019 GLU 144 04/18/2019 Visit Vitals BP 120/76 Pulse 79 Resp 18 Ht 5' 1 Wt 189 lb BMI 35.71 kg/m Smoking Status Former BSA 1.92 m ASSESSMENT AND PLAN: Assessment/Plan Diagnoses and all orders for this visit: Type 2 diabetes mellitus with hyperglycemia, without long-term current use of insulin [place] [place] POCT glucose manually resulted - POCT glycosylated hemoglobin (Hb A1C) docked device - levothyroxine (Synthroid, Levoxyl) 100 MCG tablet; Take 1 tablet (100 mcg) by mouth in the morning. - Semaglutide, 2 MG/DOSE, (Ozempic, 2 MG/DOSE,) 8 MG/3ML solution pen-injector; Inject 2 mg under the skin every 7 (seven) days - empagliflozin (Jardiance) 25 MG; Take 1 tablet (25 mg) by mouth Daily - pioglitazone (Actos) 30 MG tablet; Take 1 tablet (30 mg) by mouth Daily - Vitamin D 25 hydroxy Total; Future - Microalbumin / creatinine urine ratio; Future - Lipid panel; Future - Renal function panel; Future Start her back on Ozempic 2 mg once a week, switch Invokana to Jardiance 25 mg once a day, start Actos 30 mg once a day with 6 send her we will see her in 6 weeks and we will send CGM for freestyle 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 [place] - T3, free; Future - T4, free; Future - TSH; Future We will continue with levothyroxine 100 mcg daily we will check lab and adjust the dose Vitamin D deficiency Encounter for dietary consultation Diet and exercise reviewed with the patient History of parathyroid surgery due to primary hyperparathyroidism. s/p surgery to left lower parathyroid in 03/2019, calcium wnl on 03/2022. Class 2 severe obesity due to excess calories with serious comorbidity and body mass index (BMI) of 35.0 to 35.9 in adult [place] [place] Follow up in about 6 weeks (around 04/16/2024). documented in this encounter [facility] 06-11-2023 Evaluation note Encounter Date Diagnosis Assessment Notes May, Diarrhea (ICD-10 - R19.7) Advised that COVID and flu were negative. Diarrhea multiple times a day since Sunday last week, sx started along with N/V that has since resolved. 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 Advised pt that we will contct her with results. She should follow up with PCP in 3-4 days, sooner if sx change or worsen, immediate eval by ER for warning ssx as discussed including abdominal pain, persistent fever, persistent N/V, significant dehydration, blood in stools, chest pain, SOB. Patient verbalizes understanding and is agreeable to treatment plan. [facility] Other 12-14-2023 Evaluation note* Encounter Date Diagnosis Assessment Notes Treatment Notes Treatment Clinical Notes Mar, SI (sacroiliac) pain (ICD-10 - M53.3) Reports and imaging reports were reviewed with the patient. In the CT scan done at [facility] in December it does show L4-5 anterior listhesis that it proclaims is 3.7 mm which is very minimal and according to the report is related to facet arthritis not fracture or trauma. Most the patient's symptoms today are related to muscular strains and some SI joint pain. When patient had the slip event her right leg went straight out and then she landed on her back and it is unlikely that this caused significant worsening of her anterior listhesis. She likely strained the muscles on her right side as well as inflamed her SI joint. I recommended anti-inflammatori es as well as physical therapy. Patient will be placed on a daily anti-inflammatory and will be sent to physical therapy. She will follow-up in 6 weeks. Mar, Strain of right hamstring, initial encounter (ICD-10 - S76.311A) Mar, Strain of lumbar region, initial encounter (ICD-10 - S39.012A) Mar, Strain of right piriformis muscle, initial encounter (ICD-10 - S76.311A) Mar, Anterolisthesis of lumbosacral spine (ICD-10 - M43.17) [facility] Other 12-05-2023 Evaluation note* Encounter Date Diagnosis Assessment Notes Treatment Notes Treatment Clinical Notes Mar, Anterolisthesis of lumbosacral spine (ICD-10 - M43.17) [facility] Other 10-27-2023 Evaluation note* Encounter Date Diagnosis Assessment Notes Treatment Notes Treatment Clinical Notes Jan, Right hip pain (ICD-10 - M25.551) [facility] Other 10-09-2023 Evaluation note* Encounter Date Diagnosis Assessment Notes Treatment Notes Treatment Clinical Notes Jan, Anterolisthesis of lumbosacral spine (ICD-10 - M43.17) Jan, Fall (ICD-10 - W19.XXXA) Jan, Right hip pain (ICD- 10 - M25.551) [facility] Other 10-03-2023 Evaluation note* Encounter Date Diagnosis Assessment Notes Treatment Notes Treatment Clinical Notes Jan, Anterolisthesis of lumbosacral spine (ICD-10 - M43.17) Jan, Fall (ICD-10 - W19.XXXA) Jan, Right hip pain (ICD- 10 - M25.551) [facility] Other 09-18-2023 Evaluation note* Encounter Date Diagnosis Assessment Notes Treatment Notes Treatment Clinical Notes Dec, Anterolisthesis of lumbosacral spine (ICD-10 - M43.17) Pt's CT did reveal this anterolisthesis. I discussed these findings with her at length. I do feel pt would benefit from an MRI to better evaluate her nerves. Dec, Fall, initial encounter (ICD-10 - W19.XXXA) Review of pt's ER report, as well as CT scan. Pt presented to [facility], then to [facility]. Pt was at home when this fall occured, and states she was in sp much pain following this fall, that she vomited. She reports the most painful arae was the right gluteal posterior thigh and right popliteal area. She states her right leg went straight out in front of her when she fell, and denies any complaints of her left leg. She does still have bruising on her interior and posterior right leg, and c/o significant pain, including pain with palpation. I do feel pt needs an MRI of her lumbar spin and right hip to r/o soft tissue damage. The above imaging was ordered today, and I encouraged her to take a Tylenol and Motrin daily. I also provided her with the above muscle relaxer. We will continue to monitor. Dec, Neck pain (ICD-10 - M54.2) Dec, Bruise (ICD-10 - T14.8XXA) Dec, Type 2 diabetes mellitus (ICD-10 - E11.9) Pt has been following with Dr. Eli, who provides her with the above medication. She states her last A1C was pretty high Encouraged to watch diet and increase exercise regimen; we will continue to monitor. Dec, Other Pt is reques ting a work note to be able to wear sweat pants for three weeks so she can be comfortable at work since her jeans are too painful for her. She is also asking for 10 minute breaks to rest. These notes were provided for her. [facility] Other 09-09-2023 [facility] Hamstring Strain Rehab Ask your health care provider which exercises are safe for you. Do exercises exactly as told by your health care provider and adjust them as directed. It is normal to feel mild stretching, pulling, tightness, or discomfort as you do these exercises. Stop right away if you feel sudden pain or your pain gets worse. Do not begin these exercises until told by your health care provider. Stretching and [id number] exercises These exercises warm up your muscles and joints and improve the movement and flexibility of your thighs. These exercises also help to relieve pain, numbness, and tingling. Talk to your health care provider about these restrictions. Knee extension, seated 1. Sit with your left / right heel propped on a chair, a coffee table, or a footstool. Do not have anything under your knee to support it. 2. Allow your leg muscles to relax, letting gravity straighten out your knee (extension). You should feel a stretch behind your left / right knee. 3. If told by your health care provider, deepen the stretch by placing a weight on your thigh, just above your kneecap. 4. Hold this position for seconds. Repeat times. Complete this exercise times a day. Seated stretch This exercise is sometimes called hamstrings and adductors stretch. 1. Sit on the floor with your legs stretched wide. Keep your knees straight during this exercise. 2. Keeping your head and back in a straight line, bend at your waist to reach for your left foot. You should feel a stretch in your right inner thigh (adductors). 3. Hold this position for seconds. Then slowly return to the upright position. 4. Keeping your head and back in a straight line, bend at your waist to reach forward. You should feel a stretch behind both of your thighs or knees (hamstrings). 5. Hold this position for seconds. Then slowly return to the upright position. 6. Keeping your head and back in a straight line, bend at your waist to reach for your right foot. You should feel a stretch in your left inner thigh (adductors). 7. Hold this position for seconds. Then slowly return to the upright position. Repeat times. Complete this exercise times a day. Hamstrings stretch, supine 1. Lie on your back (supine position). 2. Loop a belt or towel over the ball of your left / right foot. The ball of your foot is on the walking surface, right under your toes. 3. Straighten your left / right knee and slowly pull on the belt or towel to raise your leg. ? Do not let your left / right knee bend while you do this. ? Keep your other leg flat on the floor. ? Raise the left / right leg until you feel a gentle stretch behind your left / right knee or thigh(hamstrings). 4. Hold this position for seconds. 5. Slowly return your leg to the starting position. Repeat times. Complete this exercise times a day. Strengthening exercises These exercises build strength and endurance in your thighs. Endurance is the ability to use your muscles for a long time, even after they get tired. Straight leg raises, prone This exercise strengthens the muscles that move the hips (hip extensors). 1. Lie on your abdomen on a firm surface (prone position). 2. Tense the muscles in your buttocks and lift your left / right leg about 4 inches (10 cm). Keep your knee straight as you lift your leg. If you cannot lift your leg that high without arching your back, place a pillow under your hips. 3. Hold the position for seconds. 4. Slowly lower your leg to the starting position. 5. Allow your muscles to relax completely before you start the next repetition. Repeat times. Complete this exercise times a day. Bridge This exercise strengthens the muscles in your buttocks and the back of your thighs (hip extensors). 1. Lie on your back on a firm surface with your knees bent and your feet flat on the floor. 2. Tighten your buttocks muscles and lift your bottom off the floor until the trunk of your body islevel with your thighs. ? You should feel the muscles working in your buttocks and the back of your thighs. ? Do not arch your back. 3. Hold this position for seconds. 4. Slowly lower your hips to the starting position. 5. Let your buttocks muscles relax completely between repetitions. 6. If told by your health care provider, keep your bottom lifted off the floor while you slowly walk your feet away from you as far as you can control. Hold for seconds, then slowly walk your feet back toward you. Repeat times. Complete this exercise times a day. Lateral walking with band (more content not included)...[id number] Discharge instructions Follow Up Care 02/21/2022 09:02:11 With:CHAY THAO, Lui Cantrell, URL Address: [address] [place], [place] [id number]- When: Unknown [facility] [place] [id number] Hospital Discharge instructions Patient Education 02/21/2022 09:01:10 Dietary Guidelines to Help Prevent Kidney Stones Dietary Guidelines to Help Prevent Kidney Stones Kidney stones are deposits of minerals and salts that form inside your kidneys. Your risk of developing kidney stones may be greater depending on your diet, your lifestyle, the medicines you take, and whether you have certain medical conditions. Most people can reduce their chances of developing kidney stones by following the instructions below. Depending on your overall health and the type of kidney stones you tend to develop, your dietitian may give you more specific instructions. What are tips for following this plan? Reading food labels Choose foods with no salt added or low-salt labels. Limit your sodium intake to less than 1500 mg per day. Choose foods with calcium for each meal and snack. Try to eat about 300 mg of calcium at each meal.Foods that contain 200 500 mg of calcium per serving include: ?8 oz (237 ml) of milk, fortified nondairy milk, and fortified fruit juice. ?8 oz (237 ml) of kefir, yogurt, and soy yogurt. ?4 oz (118 ml) of tofu. ?1 oz of cheese. ?1 cup (300 g) of dried figs. ?1 cup (91 g) of cooked broccoli. ?1 3 oz can of sardines or mackerel. Most people need 1000 to 1500 mg of calcium each day. Talk to your dietitian about how much calciumis recommended for you. Shopping Buy plenty of fresh fruits and vegetables. Most people do not need to avoid fruits and vegetables, even if they contain nutrients that may contribute to kidney stones. When shopping for convenience foods, choose: ?Whole pieces of fruit. ?Premade salads with dressing on the side. ?Low-fat fruit and yogurt smoothies. Avoid buying frozen meals or prepared deli foods. Look for foods with live cultures, such as yogurt and kefir. Cooking Do not add salt to food when cooking. Place a salt shaker on the table and allow each person to addhis or her own salt to taste. Use vegetable protein, such as beans, textured vegetable protein (TVP), or tofu instead of meat in pasta, casseroles, and soups. Meal planning Eat less salt, if told by your dietitian. To do this: ?Avoid eating processed or premade food. ?Avoid eating fast food. Eat less animal protein, including cheese, meat, poultry, or fish, if told by your dietitian. To dothis: ?Limit the number of times you have meat, poultry, fish, or cheese each week. Eat a diet free of meat at least 2 days a week. ?Eat only one serving each day of meat, poultry, fish, or seafood. ?When you prepare animal protein, cut pieces into small portion sizes. For most meat and fish, one serving is about the size of one deck of cards. Eat at least 5 servings of fresh fruits and vegetables each day. To do this: ?Keep fruits and vegetables on hand for snacks. ?Eat 1 piece of fruit or a handful of berries with breakfast. ?Have a salad and fruit at lunch. ?Have two kinds of vegetables at dinner. Limit foods that are high in a substance called oxalate. These include: ?Spinach. ?Rhubarb. ?Beets. ?Potato chips and turkish fries. ?Nuts. If you regularly take a diuretic medicine, make sure to eat at least 1 2 fruits or vegetables high in potassium each day. These include: ?Avocado. ?Banana. ?[place], prune, carrot, or tomato juice. ?Baked potato. ?Cabbage. ?Beans and split peas. General instructions Drink enough fluid to keep your urine clear or pale yellow. This is the most important thing you can do. Talk to your health care provider and dietitian about taking daily supplements. Depending on your health and the cause of your kidney stones, you may be advised: ?Not to take supplements with vitamin C. ?To take a calcium supplement. ?To take a daily probiotic supplement. ?To take other supplements such as magnesium, fish oil, or vitamin B6. Take all medicines and supplements as told by your health care provider. Limit alcohol intake to no more than 1 drink a day for non women and 2 drinks a day for men. One drink equals 12 oz of beer, 5 oz of wine, or 1 oz of hard liquor. Lose weight if told by your health care provider. Work with your dietitian to find strategies and an eating plan that works best for you. What foods are not recommended? Limit your intake of the following foods, or as told by your dietitian. Talk to your dietitian about specific foods you should avoid based on the type of kidney stones and your overall health. Grains Breads. Bagels. Rolls. Baked goods. Salted crackers. Cereal. Pasta. Vegetables Spinach. Rhubarb. Beets. Canned vegetables. Pickles. Olives. Meats and other protein foods Nuts. Nut butters. Large portions of meat, poultry, or fish. Salted or cured meats. Deli meats. Hotdogs. Sausages. Dairy Cheese. Beverages Regular soft drinks. Regular vegetable juice. Seasonings and other foods Seasoning blends with salt. Salad dressings. Canned soups. Soy sauce. Ketchup. Barbecue sauce. Canned pasta sauce. Casseroles. Pizza. Lasagna. Frozen meals. Potato chips. [place] fries. Summary You can reduce your risk of kidney stones by making changes to your diet. The most important thing you can do is drink enough fluid. You should drink enough fluid to keep your urine clear or pale yellow. Ask your health care provider or dietitian how much protein from animal sources you should eat eachday, and also how much salt and calcium you should have each day. This information is not intended to replace advice given to you by your health care provider. Make sure you discuss any questions you have with your health care provider. Document Released: 08/11/2011 Document Revised: 08/06/2019 Document Reviewed: 03/27/2017 [employer] Patient Education 2020 [employer]. Follow Up Care 02/15/2021 09:22:38 With:CHAY THAO, Lui Cantrell, URL Address: [address] [place], [place] [address], [place] [address] When:Within 18 Month(s) Comments:LAKEISHA [facility] [place] [id number] Evaluation note* Encounter Date Diagnosis Assessment Notes Treatment Notes Treatment Clinical Notes Sep, Hypothyroidism (ICD-10 - E03.9) [facility] Other 01-06-2022 Evaluation note* Encounter Date Diagnosis Assessment Notes Treatment Notes Treatment Clinical Notes Apr, Cough (ICD-10 - R05.9) In house covid and flu test obtained. The patient was advised she is positive for both covid and flu b. Apr, Type 2 diabetes mellitus (ICD-10 - E11.9) The patient reports having blurred vision yesterday. She is diabetic but admits she lost her glucometer recently when she moved therefore has not checked her levels. She continues to take the above medications. Dr. Meyers was updated on her condition. Refill faxed for the glucometer and diabetic testing supplies. We will continue to monitor. Apr, COVID-19 (ICD-10 - U07.1) The patient did test positive today for COVID. She reports symptoms starting 05/02. She is an uncontrolled diabetic and does report a previous history of a known thrombosis. She is not on an anticoagulant and believes her glucose levels are elevated due to noticing blurred vision yesterday. I did recommend the patient report to the ER today due to complaints also of posterior left knee pain and swelling ongoing for three weeks stating this was similar to when she had the blood clot previously. She was hesitant initially but Dr. Meyers was updated on her condition and was in agreement with her to go to the ER for proper evaluation of her current complaints therefore, she was in agreement. She is to call the office when she leaves the ER for further treatment. She voices understanding. We will continue to monitor. Apr, Influenza B (ICD-10 - J10.1) The patient tested positive for influenza B today. She is aware of quarantine instructions. We will continue to monitor. [facility] Other 09-23-2021 Evaluation note* Encounter Date Diagnosis Assessment Notes Treatment Notes Treatment Clinical Notes Dec, Urinary frequency (ICD-10 - R35.0) Dec, Suspected UTI (ICD-10 - R39.89) Will treat patient for UTI. Instructed patient to take antibiotic as prescribed, take with food, complete entire course of therapy even if feeling better. Allergies and recent antibiotic use was reviewed with patient. Advised patient culture was sent today and we will call with her results if abx needs changed. Patient instructed to push fluids. May take pyridium for discomofort as prescribed. Patient symptoms should improve in the next 48 hours, if symptoms persist follow up with PCP or UC. Immediate eval by ER if back or flank pain, fever, chills, N/V, or any other concerning symptoms. Nicole verbalizes understanding and is agreeable to treatment plan [facility] Other 01-03-2015 History general Narrative - Reported* Type Description Date Medical History 05/02/14 Labs Medical History 05/20/14 Mammogram Medical History Hyperlipidemia Medical History Hypothyroidism, unspecified Medical History Diabetes mellitus wi thout mention of complication, type II or unspecified, not stated as uncontrolled Medical History EKG 01/08/17 Surgical History D and C 2006 Surgical History hernia repair at age 13 Hospitalization History See Above [facility] Other 01-03-2015 History general Narrative - Reported* Type Description Date Medical History 05/02/14 Labs Medical History 05/20/14 Mammogram Medical History Hyperlipidemia Medical History Hypothyroidism, unspecified Medical History Diabetes mellitus wi thout mention of complication, type II or unspecified, not stated as uncontrolled Medical History EKG 01/08/17 Surgical History D and C 2006 Surgical History hernia repair at age 13 Surgical History appendectomy 01/2023 Hospitalization History See Above Hospitalization History ruptured appendix- 2 day [facility] 02/01/2023 Jaunt Other Chief complaint+Reason for visit Narrative* Chief Complaint E1.[address] Austin Anterolisthesis Of Lum sacroccygeal pain R leg r19.7 [facility] Work Phone: Evaluation + Plan note Future Appointments Appointment Date:08/14/2023 08:30:00 AM Scheduled Provider:Lui CARTWRIGHT MD Location:[facility] Appointment Type:URO Office Visit [facility] Evaluation noteNo InformationNoMisticom Nativoo Other Evaluation noteNo assessment information available [facility] Work Phone: evaluation note* Diagnosis Onset Date Resolution Status Strep throat acute [facility] Work Phone: evaluation note* Diagnosis Type 2 diabetes mellitus with hyperglycemia, without long-term current use of insulin ([facility])- Primary [facility] encounter [facility]* Diagnosis Type 2 diabetes mellitus with hyperglycemia, without long-term current use of insulin ([facility])- Primary 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[facility]) Chronic lymphocytic thyroiditis Vitamin D deficiency Encounter for dietary consultation History of parathyroid surgery Class 2 severe obesity due to excess calories with serious comorbidity and body mass index (BMI) of 35.0 to 35.9 in adult ([facility]/H[facility]) [facility] Narrative No data available for this section [facility] Progress note No data available for this section [facility] Reason for visit Narrativereferral Dr. Austin anterolisthesis of lumbar spineQuitman Nativoo Other Advance Directives Advance Directive Response Recorded Date/ Time Advance Directives No March 1:38pm Advance Directive Response Recorded Date/ Time Advance Directives No March 2:38pm Chief Complaint and Reason for Visit Chief Complaint Z20.828 See order Chief Complaint n20.0 Chief Complaint n20.0 E03.9 Chief Complaint urogenital Chief Complaint urogenital E1.65 E06.3 Chief Complaint r19.7 sore throat, cough, headache Reason for Visit Strep throat Assessments No Assessments Information Available Family History Relationship Condition Age at Onset Recorded Date/T codey father Type 2 diabetes mellitus with obesity Unk nown Cerebrovascular accident (CVA) Unknown father Aneurysm Unknown Not Specified Systemic lupus erythematosus Unknown Crohn's disease of colon Unknown Relationship Condition Age at Onset Recorded Date/T codey father Type 2 diabetes mellitus with obesity Unk nown Cerebrovascular accident (CVA) Unknown father Aneurysm Unknown Not Specified Systemic lupus erythematosus Unknown Crohn's disease of colon Unknown father Diabetes mellitus Unknown Hypertension Unknown grandparent Diabetes mellitus Unknown Unknown Summary Purpose Reason for Referral Reason Evaluate and Treat Diagnosis 1 Anterolisthesis of l umbosacral spine (M43.17) Referral Organization [facility] Referring Provider First Name Luigi Referring Provider Last Name Farnaz Referring Provider Specialty Family Prac [place] Referred Organization [facility] [place] Referred Provider Keagan Rahman Referred Address [address] [place], [place] [address], [place],[address] Referred Provider Specialty Family Pract ice Referral Priority Routine Additional Source Comments REASON FOR VISIT (unrecogniz ed section and content) Reason Onset Date Comments Med Refill 03/11/2024 Reason Comments Thyroid Problem Diabetes Follow-up Reason Comments Med Refill DIARRHEA, EXPOSURE TO COVIDSports Medicine ReferralCT deniedmri deniedER recheck per Dr. HoClinicalcovid chills,sore throat ,earpainPOSS UTI Care Teams (unrecognized sec tion and content) Team Status: Inactive Member Role Status Dates Luigi Austin DO Primary Care Provider Active Lui Cartwright MD Attending Provider Active Team Status: Active Member Role Status Dates Luigi Austin DO Primary Care Provider Active Team Status: Inactive Member Role Status Dates Luigi Austin DO Primary Care Provider Active Noemi Eli MD Attending Provider Active Team Status: Inactive Member Role Status Dates Luigi Austin DO Primary Care Provider Active Kamlesh Barragan DO Emergency Provider Active Team Status: Inactive Member Role Status Dates Luigi Austin DO Primary Care Provider Active Sta rt: March 20, 2023 End: March 20, 2023 Noemi Eli MD Attending Provider Active Sta rt: March 20, 2023 End: March 20, 2023 Team Status: Inactive Member Role Status Dates Keagan Rahman DO Attending Provider Active Start: April 12, 2023 End: April 12, 2023 Team Status: Inactive Member Role Status Dates Luigi Austin DO Primary Care Provider Active Sta rt: April 20, 2023 End: April 20, 2023 Keagan Rahman DO Attending Provider Active Start: April 20, 2023 End: April 20, 2023 Team Status: Inactive Member Role Status Dates Luigi Austin DO Primary Care Provider Active Sta rt: June 12, 2023 End: June 12, 2023 Skylar Myers , [employer]AT OPERATOR Attending Provider Active Sta rt: June 12, 2023 End: June 12, 2023 Team Status: Inactive Member Role Status Dates Luigi Austin DO Primary Care Provider Active Sta rt: August 28, 2023 End: August 28, 2023 Cornelio Smith PA-C Attending Provider Active St art: August 28, 2023 End: August 28, 2023 [employer] Designer [employer] Relationship Specialty Start Date End Date Debora Pickens NP [address] [place] [address] [facility] 10/29/23 [employer] Sh[employer] Designer And Maker Relationship Specialty Start Date End Date Luigi Austin MD [address] [place] [address] PCP - General 03/03/24 [employer] Designer And Maker Relationship Specialty Start Date End Date Luigi Austin MD [address] [place] [address] PCP - General 03/03/24 [employer] Shoe Designer And Maker Relationship Specialty Start Date End Date Luigi Austin MD [address] [place] [address] PCP - General 03/03/24 Goals (unrecognized section and content) Goals may be documented in a n alternate section INFORMATION SOURCE (unrecogn ized section and content) DATE CREATED AUTHOR 01/21/2023 [facility] DATE CREATED AUTHOR AUTHOR'S ORGANIZ ATION 06/27/2023 [facility] DATE CREATED AUTHOR AUTHOR'S ORGANIZ ATION 08/15/2023 [facility] DATE CREATED AUTHOR AUTHOR'S ORGANIZ ATION 03/07/2024 [facility] FOR RECORDS PERTAINING TO PATIENTS WHO ARE OR HAVE BEEN ENROLLED IN A CHEMICAL DEPENDENCY/SUBSTANCEABUSE PROGRAM, SOME INFORMATION MAY BE OMITTED. This clinical summary was aggregated from multiple sources. Caution should be exercised in using it in the provision of clinical care. This summary normalizes information from multiple sources, and as a consequence, information in this document may materially change the coding, format and clinical context of patient data. In addition, data may be omitted in some cases. CLINICAL DECISIONS SHOULD BE BASED ON THE PRIMARY CLINICAL RECORDS. [employer] provides no warranty or guarantee of the accuracy or completeness of information in this document.
[2024-04-30 22:58] VITALS: BP 148/78; PULSE 74; TEMP 36.9; O2SAT 98; BMI 31.1
--- NOTE | 2024-05-01 00:09 | ECG_ITS ---
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
[2024-05-01 00:27] LABS: Glucometer 237 mg/dL (74-106)
[2024-05-01 00:36] LABS: Basophils Percent Auto 0.4 % (0.2-2.0); Eosinophils Absolute Auto 0.1 10^3/uL (0.0-0.7); Eosinophils Percent Auto 2.3 % (0.9-7.0); Hematocrit 43.1 % (36.0-48.0); Hemoglobin 14.2 g/dL (12.0-16.0); Immature Granulocytes Abs Auto 0.02 10^3/uL (0.00-0.03); Immature Granulocytes Pct Auto 0.4 % (0.0-0.5); Lymphocytes Absolute Auto 1.8 10^3/uL (1.2-3.8); Lymphocytes Percent Auto 33.8 % (20.5-60.0); Mean Corpuscular HGB Conc 32.9 g/dL (29.9-35.2); Mean Platelet Volume 10.8 fL (9.5-13.5); Monocytes Absolute Auto 0.7 10^3/uL (0.3-0.8); Monocytes Percent Auto 12.8 % (1.7-12.0); Neutrophils Absolute Auto 2.6 10^3/uL (1.4-6.5); Neutrophils Percent Auto 50.3 % (43.0-75.0); Platelet Count 184 10^3/uL (150-450); Red Cell Distribution Width 13.4 % (11.0-15.0); White Blood Count 5.2 10^3/uL (4.0-11.0)
[2024-05-01 00:40] LABS: PCO2 VBG 43.5 mmHg (40.0-52.0)
--- NOTE | 2024-05-01 00:42 | ED_ITS ---
HPI HPI - General Adult General Chief complaint: Recheck/Abnormal Lab/Rx Stated complaint: hyperglycemia Time Seen by Provider: 04/30/24 23:14 Source: patient Mode of arrival: walk-in History of Present Illness HPI narrative: 49-year-old female to the emergency department with chief complaint of elevated blood glucose. She reports that she feels weak, fatigued, dehydrated. She reports that she has had some blurred vision, increased urination. She reports she has had difficulty with her physician getting her drugs due to prior authorizations. She reports that she was doing well for a long time on Ozempic however her insurance company has stopped this and required a prior authorization which her doctor told her she would not get. Patient reports that she has an upcoming appoint with a new doctor on 22 May. She continues to take her other diabetes medications. She reports that her blood glucose typically runs between 200-350. Today it reached 400 prompting her ED visit. Related Data Home Medications ?Medication ?Instructions ?Recorded ?Confirmed levothyroxine 100 mcg tablet 100 mcg PO DAILY 02/02/23 02/21/24 (Synthroid) semaglutide 2 mg/dose (8 mg/3 mL) 2 mg subcut .weekly 02/02/23 02/21/24 subcutaneous pen injector (Ozempic) canagliflozin 300 mg tablet 300 mg PO DAILY 02/21/24 02/21/24 (Invokana) Previous Rx's ?Medication ?Instructions ?Recorded sulfamethoxazole 800 1 tab PO BID #10 tabs 02/21/24 mg-trimethoprim 160 mg tablet (Bactrim DS) Allergies Allergy/AdvReac Type Severity Reaction Status Date / Time Penicillins AdvReac Severe Verified 01/04/23 17:06 glimepiride (From Amaryl) AdvReac Intermediate Diarrhea Verified 02/02/23 02:24 metformin AdvReac Intermediate Diarrhea Verified 02/02/23 02:24 cranberries Allergy Severe Anaphylaxis Uncoded 02/02/23 02:24 mold Allergy Severe Anaphylaxis Uncoded 02/02/23 02:24 Opioid HPI Opioid Management Most Recent Opioid Data: Last Pain Scale 2 02/03/23 11:54 02/03/23 Review of Systems ROS Status of ROS 10 or more systems reviewed and unremark able except as noted in history and below [facility] Medical History (Updated 05/01/24 @ 02:30 by Avinash Smith MD) Diabetes ?E11.9 - Type 2 diabetes mellitus without complications (ICD-10) DVT (deep venous thrombosis) ?I82.409 - Acute embolism and thrombosis of unspecified deep veins of unspecified lower extremity (ICD-10) Surgical History (Updated 02/02/23 @ 03:28 by Omi Wiley) H/O parathyroidectomy ?E89.2 - Postprocedural hypoparathyroidism (ICD-10) Family History Other Family history of diabetes mellitus Social History (Updated 02/02/23 @ 10:54 by Shaikh Gagan MD) Within the past year, how often did you have a drink containing alcohol: never Within the past year, how many standard drinks containing alcohol did you have on a typical day: 1 or 2 Within the past year, how often did you have six or more drinks on one occasion: never Total score: 0 Score interpretation: A score less than 3 is consistent with normal alcohol consumption. Smoking status: Never smoker Non-prescribed substance use: denies use Little interest or pleasure in doing things: not at all Feeling down, depressed, or hopeless: not at all Exam Narrative Exam Narrative: VITALS: I have reviewed the triage vital signs. GENERAL: Well developed, well appearing adult in no acute distress. NEURO: Alert and oriented. Moves all extremities. Face is symmetric and expressive. EYES: PERRL. No scleral icterus or conjunctival injection. No discharge. HENT: Normocephalic, atraumatic. Hearing is grossly intact. Nares grossly patent and without discharge. Mucous membranes dry. NECK: No JVD. Patient moves neck without restriction. CARDIO: Rhythm regular. Normal rate. No murmur, rub, or gallop. Pulses equal bilaterally in the upper and lower extremity. No lower extremity edema. PULM: Lungs clear to auscultation in all vasquez. No wheezes, rales, or rhonchi. No conversational dyspnea. No splinting, stridor, or accessory muscle use. GI/: Abdomen is soft and non-tender. Normoactive bowel sounds. EXTREMITIES: Symmetric muscle bulk. No joint swelling. No clubbing, cyanosis, or deformity. SKIN: Warm and dry. Normal turgor. No rash or lesions appreciated. PSYCH: Mood, affect, and interaction is appropriate to the setting. Constitutional Vital Signs, click to edit/add: Last Vital Signs Temp 98.5 F 04/30/24 22:58 Pulse 74 04/30/24 22:58 Resp 18 04/30/24 22:58 BP 148/78 H 04/30/24 22:58 Pulse Ox 98 04/30/24 22:58 O2 Del Method Room Air 04/30/24 22:58 Course Vital Signs Vital signs: Vital Signs Temperature 98.5 F 04/30/24 22:58 Pulse Rate 74 04/30/24 22:58 Respiratory Rate 18 04/30/24 22:58 Blood Pressure 148/78 H 04/30/24 22:58 Pulse Oximetry 98 04/30/24 22:58 Oxygen Delivery Method Room Air 04/30/24 22:58 Temperature 98.5 F 04/30/24 22:58 Pulse Rate 74 04/30/24 22:58 Respiratory Rate 18 04/30/24 22:58 Blood Pressure 148/78 H 04/30/24 22:58 Pulse Oximetry 98 04/30/24 22:58 Oxygen Delivery Method Room Air 04/30/24 22:58 Medical Decision Making MDM Narrative Medical decision making narrative: 41-year-old female to the blood sugar hydration, malaise. Vital stable, the pat ient is afebrile. Fluids. Toradol for symptoms. patient agrees with this plan. Glucose is at her baseline. No major abnormalities. She is not in DKA. Patient felt much improved after the Toradol and fluids. Discussed the need for follow-up with her doctor. Discussed the need for following carbohydrate diet. Return precautions were discussed. All questions were answered. Medical Records Medical records reviewed: Yes I reviewed the patient's medical records Lab Data Lab results reviewed: Yes I reviewed the patient's lab results Labs: Lab Results 05/01/24 05/01/24 05/01/24 Range/Units 00:18 00:23 00:36 WBC 5.2 (4.0-11.0) 10^3/uL RBC 4.90 (4.20-5.40) 10^6/uL Hgb 14.2 (12.0-16.0) g/dL Hct 43.1 (36.0-48.0) % MCV 88.0 (81.0-99.0) fL MCH 29.0 (26.7-34.0) pg MCHC 32.9 (29.9-35.2) g/dL RDW 13.4 (11.0-15.0) % Plt Count 184 (150-450) 10^3/uL MPV 10.8 (9.5-13.5) fL Neut % (Auto) 50.3 (43.0-75.0) % Lymph % (Auto) 33.8 (20.5-60.0) % [place] % (Auto) 12.8 H (1.7-12.0) % Eos % (Auto) 2.3 (0.9-7.0) % Baso % (Auto) 0.4 (0.2-2.0) % Neut # (Auto) 2.6 (1.4-6.5) 10^3/uL Lymph # (Auto) 1.8 (1.2-3.8) 10^3/uL [place] # (Auto) 0.7 (0.3-0.8) 10^3/uL Eos # (Auto) 0.1 (0.0-0.7) 10^3/uL Baso # (Auto) 0.0 (0.0-0.1) 10^3/uL Abs Immat Gran (auto) 0.02 (0.00-0.03) 10^3/uL Imm/Tot Granulo (auto) 0.4 (0.0-0.5) % VBG pH 7.370 (7.330-7.430) VBG pCO2 43.5 (40.0-52.0) mmHg Sodium 138 (136-145) mmol/L Potassium 3.6 (3.5-5.1) mmol/L Chloride 101 (98-107) mmol/L Carbon Dioxide 24.9 (21.0-32.0) mmol/L Anion Gap 15.7 BUN 26.0 H (7.0-18.0) mg/dL Creatinine 0.89 (0.55-1.02) mg/dL Est GFR ( Amer) >60 (>=60 mL/min/1.73m^2) Est GFR (Non-Af Amer) >60 (>=60 mL/min/1.73m^2) BUN/Creatinine Ratio 29.2 Glucose 267 H (74-106) mg/dL Lactate 1.0 (0.4-2.0) mmol/L Calcium 9.4 (8.5-10.1) mg/dL Magnesium 2.1 (1.8-2.4) mg/dL Urine Color Lt. yellow (YELLOW) Urine Clarity Clear (CLEAR) Urine pH 6.0 (5.0-9.0) Ur Specific [place] 1.010 (1.005-1.025) Urine Protein Negative (NEG/TRACE) mg/dL Urine Glucose (UA) >=1000 A (NEGATIVE) mg/dL Urine Ketones Trace A (NEGATIVE) mg/dL Urine Occult Blood Negative (NEGATIVE) Urine Nitrite Negative (NEGATIVE) Urine Bilirubin Negative (NEGATIVE) Urine Urobilinogen 0.2 (0.2-1.0) EU/dL Ur Leukocyte Esterase Negative (NEGATIVE) POC Glucose 237 H (74-106) mg/dL Discharge Plan Discharge Chief Complaint: Recheck/Abnormal Lab/Rx Clinical Impression: Type 2 diabetes mellitus with hyperglycemia Patient Disposition: Home, Self-Care Time of Disposition Decision: 02:28 Condition: Good Mode of Transportation: Private Vehicle Prescriptions / Home Meds: No Action Ozempic 2 mg/dose (8 mg/3 mL) pen injector 2 mg SUBCUT .weekly levothyroxine [Synthroid] 100 mcg tablet 100 mcg PO DAILY Invokana 300 mg tablet 300 mg PO DAILY sulfamethoxazole-trimethoprim [Bactrim DS] 800-160 mg tablet 1 tab PO BID Qty: 10 0RF Print Language: Slovenian Instructions: Diabetic Hyperglycemia (ED) Additional Instructions: Call the office of your primary care doctor to arrange for follow-up within the above-stated timeframe. Your ED visit was focused on your acute issue and does not replace primary care. You should review your labs, imaging, and diagnoses from this ED visit with your primary care physician. There may be non-emergent/ incidental findings that need further evaluation. You should review your vital signs including blood pressure with your PCP. If you were prescribed medications you should discuss possible side-effects and drug interactions with your pharmacist. Call 911 or go to the nearest Emergency Department if you develop any new or worsening symptoms. Eat a low carbohydrate diet. Follow-up with your doctor to discuss adding additional diabetes medications. Referrals: Luigi Osei DO [Primary Care Provider] - 1 week
[2024-05-01] MEDS: KETOROLAC TROMETHAMINE 30 MG/ML VIAL 15 MG IVP (00:43)
[2024-05-01] MEDS: 0.9 % SODIUM CHLORIDE 1,000 ML 999 ML IV (00:43)
[2024-05-01 00:49] LABS: Anion Gap 15.7; BUN Creatinine Ratio 29.2; Calcium 9.4 mg/dL (8.5-10.1); Carbon Dioxide 24.9 mmol/L (21.0-32.0); Chloride 101 mmol/L (98-107); Estimated GFR (African America >60 (>=60 mL/min/1.73m^2); Estimated GFR (Non-African Ame >60 (>=60 mL/min/1.73m^2); Glucose 267 mg/dL (74-106); Magnesium 2.1 mg/dL (1.8-2.4); Potassium 3.6 mmol/L (3.5-5.1); Sodium 138 mmol/L (136-145)
[2024-05-01 01:11] LABS: Bilirubin Urine NEGATIVE (NEGATIVE); Blood Urine NEGATIVE (NEGATIVE); Clarity Urine CLEAR (CLEAR); Color Urine LT. YELLOW (YELLOW); Glucose Urine UA >=1000 mg/dL (NEGATIVE); Ketones Urine TRACE mg/dL (NEGATIVE); Leukocyte Esterase Urine NEGATIVE (NEGATIVE); Nitrite Urine NEGATIVE (NEGATIVE); Protein Urine NEGATIVE (NEG/TRACE); Urobilinogen Urine 0.2 EU/dL (0.2-1.0)
[2024-05-01 01:16] LABS: Urine Microscopic Indicated NO
== END 2024-05-01 03:13 | disposition home or self-care (01) ==
PROVIDERS: Emergency Provider Student in an Organized Health Care Education/Training Program; PCP Family Medicine
DX: E11.65 Type 2 diabetes mellitus with hyperglycemia (principal); Z79.85 Long-term (current) use of injectable non-insulin antidiabetic drugs
CPT/HCPCS: 36415; 80048; 81003; 82800; 82948; 83605; 83735; 85025; 93005; 96361; 96374; 99284; J1885